=== PATIENT | female | born 1965 | race African-American/Black ===

== ENCOUNTER 2016-12-05 15:47 | Observation (INO) ==
[2016-12-05 19:23] LABS: INR 0.99; PROTIME 10.4 Seconds (9.2-11.7)
[2016-12-05] MEDS ORDERED: NS 1,000 ML IV SCH (20:30)
[2016-12-05] MEDS ORDERED: ZOFRAN IV PRN (20:30)
[2016-12-05] MEDS ORDERED: PROTONIX IV SCH (20:30)
[2016-12-05] MEDS ORDERED: SODIUM CHLORIDE 0.9% INJ SCH (20:45)
[2016-12-05] MEDS: PLAQUENIL PO SCH (21:22)
[2016-12-05] MEDS: ZANAFLEX PO SCH (21:22)
[2016-12-05] MEDS: RANEXA PO SCH (21:22)
[2016-12-05] MEDS: COLACE PO SCH (21:23)
[2016-12-05] MEDS: NEURONTIN PO SCH (21:23)
[2016-12-05] MEDS: AMBIEN PO SCH (21:23)
[2016-12-05] MEDS: LOVENOX SUBQ SCH (21:23)
[2016-12-05] MEDS: GLUCOPHAGE PO SCH (21:23)
--- NOTE | 2016-12-05 21:25 | Diag Imaging Result Doc PS360 ---
EXAM: KUB ABDOMEN INDICATION: constipation TECHNIQUE: Two views COMPARISON: 07/14/2016 FINDINGS: There is a fair amount of stool in the colon suggesting at least moderate constipation. There is no obstructive bowel pattern. There is no evidence of large volume free abdominal gas. There are stable metallic clips projecting over the upper abdomen. There is no evidence of organomegaly. IMPRESSION: Suggestion of constipation. Electronically signed by Jefe Briggs 12/05/2016 9:22 PM
[2016-12-05] MEDS: HUMULIN R SUBQ SCH (21:28)
[2016-12-05] MEDS: TORADOL IM PRN (21:32)
[2016-12-05 21:38] LABS: MANUAL DIFF NEEDED? NO
[2016-12-05 21:39] LABS: HEMATOCRIT 37.1 % (37.0-47.0); HEMOGLOBIN 12.7 g/dL (12.0-16.0); RBC 4.18 XMIL (4.2-5.4)
[2016-12-05 21:40] LABS: BASO% 0.2 % (0.0-0.8); EOS% 2.5 % (0.0-10.0); IMM GRAN# 0.04 X1000 (0.0-0.04); IMM GRAN% 0.5 % (0.0-0.5); LYMPH# 3.99 X1000 (1.2-3.4); LYMPH% 49.3 % (20.5-51.1); MCH 30.4 PG (27-31); MCHC 34.2 g/dL (33-37); MCV 88.8 FL (81-99); MONO# 0.74 X1000 (0.11-0.59); MONO% 9.1 % (1.7-9.3); MPV 10.3 FL (7.4-10.4); NEUT% 38.4 % (42.2-75.2); PLT 320 X1000 (130-400)
[2016-12-05 21:55] LABS: HEMOGLOBIN A1C 6.2 % (4.8-6.0)
[2016-12-05 21:58] LABS: AGAP 14; ALBUMIN 3.7 g/dL (3.5-5.0); ALKALINE PHOSPHATASE 64 U/L (32-104); BUN 22 mg/dL (8-22); CALCIUM 9.2 mg/dL (8.8-10.2); CHLORIDE 109 mmol/L (98-107); COSMO 288; GOT 26 U/L (10-30); GPT 14 U/L (10-36); MAGNESIUM 1.6 mg/dL (1.5-2.7); POTASSIUM 4.4 mmol/L (3.5-5.1); SODIUM 143 mmol/L (136-145); TCO2 20 mmol/L (25-35); TOTAL PROTEIN 7.4 g/dL (6.3-8.3)
[2016-12-05] MEDS ORDERED: MIRALAX PO ONE (22:27)
--- NOTE | 2016-12-05 22:53 | HISTORY AND PHYSICAL ---
CHIEF COMPLAINT: Abdominal pain, nausea, vomiting, not eating for the last 2 days. Blood sugars were running 400. Patient had been on insulin pump. Patient was seen for similar presentation month ago and CT of the abdomen and pelvis was negative. Patient does have gastroparesis. Last BM was reported today. HISTORY OF PRESENT ILLNESS: Basically admitted to the hospital with dehydration with uncontrolled diabetes. She is extremely dry. Unable to get IV access. PICC line was consulted. The patient does have gastric emptying study done on 07/30/2015 which showed delayed gastric emptying. As a result, a hospital admission was warranted. 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 Rheumatoid arthritis, stroke syndrome, left lacunar infarct, history of venous thrombosis left internal jugular vein due to port catheter. PAST SURGICAL HISTORY: Cholecystectomy, hysterectomy, carpal tunnel surgery, bypass surgery, history of right Port-A-Cath. MEDICATIONS: Amlodipine 10 mg daily, losartan 100 daily, clonidine 0.1 daily, Plaquenil 200 p.o. b.i.d., gabapentin 600 p.o. b.i.d., aspirin 325 daily, metformin 1000 p.o. b.i.d., Lipitor 80 daily, Ambien 10 daily, Ranexa 1000 p.o. b.i.d., Zanaflex 4 mg daily, isosorbide 30 mg daily, docusate 100 p.o. b.i.d. ALLERGIES: Not known. SOCIAL HISTORY: 1 kid, lives in [place]. No smoking. No alcohol. FAMILY HISTORY: Father at the age of 50 car wreck. Mom is 87 and of old age with dementia. HEALTH MAINTENANCE: Flu vaccine 2015, tetanus 2012, Pap smear 2011, colonoscopy [address] Parkinson with fecal impaction. REVIEW OF SYSTEMS: HEENT: No headache. No vision problem. No earache. No sore throat. Neck: No goiter. No lymphadenopathy. No bruit. Cardiopulmonary: No chest pain, shortness of breath, PND, orthopnea. GI: Nausea, vomiting, abdominal pain, constipation. : No history of hesitancy, frequency. No swelling of legs. Dry skin. Neurological: No focal symptoms, seizures. PHYSICAL EXAMINATION: VITAL SIGNS: Afebrile, vitals are stable, 5 feet, 196 pounds and labs are pending. HEENT EXAM: Dry mucous membranes. Pupils equal, reactive to light. TMs are normal. Nose and throat within normal limits. NECK: Supple. No lymphadenopathy and no goiter. CHEST: Bilateral air entry. No rales, no wheezing. HEART: Sounds are regular. ABDOMEN: Belly soft, nontender. Good bowel sounds. No masses palpable. EXTREMITIES: No peripheral edema, cyanosis, clubbing. NEUROLOGIC: No focal deficits. INVESTIGATIONS: CBC normal, PT/INR is normal. A1c is doing very well 6.2, proBNP is normal. Cardiac enzymes were normal. Magnesium 1.6. LFTs were normal. Amylase was normal. ASSESSMENT AND PLAN: 1. A 51-year-old female admitted to the hospital basically for gastroparesis, constipation, impending dehydration, nonnarcotic with Toradol and peripherally inserted central catheter line consult. IV fluids, Zofran for nausea and reconcile home medications. 2. Type 2 diabetes on insulin pump. 3. Deep venous thrombosis prophylaxis with Lovenox and will check the lipid profile in the morning. The patient has been admitted to the hospital for observation. cc: Ti Singh MD
[2016-12-06] MEDS: ZOFRAN ODT PO PRN ×5 (03:24→20:52)
[2016-12-06] MEDS: TORADOL IM PRN ×4 (03:24→20:53)
[2016-12-06] MEDS: HUMULIN R SUBQ SCH ×4 (06:20→20:53)
[2016-12-06 07:09] LABS: HDL 29 mg/dL (45-65); LDL 85 mg/dL; TRIGLYCERIDES 308 mg/dL (35-135); VLDL 62 mg/dL
[2016-12-06] MEDS ORDERED: NS 0 ML ONE (07:50)
[2016-12-06] MEDS: PROTONIX PO SCH (07:58)
[2016-12-06] MEDS: ASPIRIN PO SCH (08:51)
[2016-12-06] MEDS: MIRALAX PO SCH (08:51)
[2016-12-06] MEDS: GLUCOPHAGE PO SCH ×2 (08:51→20:52)
[2016-12-06] MEDS: COZAAR PO SCH (08:51)
[2016-12-06] MEDS: RANEXA PO SCH ×2 (08:51→20:53)
[2016-12-06] MEDS: NEURONTIN PO SCH ×2 (08:51→20:52)
[2016-12-06] MEDS: PLAQUENIL PO SCH ×2 (08:51→20:53)
[2016-12-06] MEDS: IMDUR PO SCH (08:51)
[2016-12-06] MEDS: COLACE PO SCH ×2 (08:51→20:53)
[2016-12-06] MEDS: NORVASC PO SCH (08:51)
--- NOTE | 2016-12-06 19:11 | PROGRESS NOTE ---
DATE: 12/06/2016 SUBJECTIVE: The patient is tolerating the diet very well. Belly examination, patient is constipated. PHYSICAL EXAMINATION: Vital Signs: Stable afebrile. HEENT: Within normal limits. Neck: Supple. No lymphadenopathy. No goiter. Chest: Clear. Heart: Sounds are regular. Abdomen: Belly is soft, no signs of peritonitis. LABORATORY WORKUP: CBC: White cell count 8, hematocrit 37, platelets 320,000. SMA7 is normal. A1c 6.2. Triglycerides 308, cholesterol 176, amylase is normal. IMAGING: KUB: Constipation. ASSESSMENT AND PLAN: Abdominal pain probably due to constipation and gastroparesis, eating very well. Discussed the findings. She will be discharged in the morning. We will hold the PICC line. Patient extremely doing very well. Maintenance care for diabetes, hyperlipidemia, at least for the last 6 months comparing with the previous visits. Patient is advised to continue MiraLAX and laxatives as needed. Discharge in the morning. LEVEL OF DOCUMENTATION: 25 minutes. cc: Ti Singh MD
[2016-12-06] MEDS: ZANAFLEX PO SCH (20:52)
[2016-12-06] MEDS: AMBIEN PO SCH (20:53)
[2016-12-06] MEDS: LOVENOX SUBQ SCH (20:53)
[2016-12-06] MEDS ORDERED: DULCOLAX PR SCH (21:00)
[2016-12-06] MEDS ORDERED: LIPITOR PO SCH (21:00)
[2016-12-07] MEDS: ZOFRAN ODT PO PRN ×3 (03:02→11:18)
[2016-12-07] MEDS: TORADOL IM PRN ×3 (03:02→14:46)
[2016-12-07] MEDS: HUMULIN R SUBQ SCH ×2 (06:02→11:19)
[2016-12-07] MEDS: PROTONIX PO SCH (06:21)
[2016-12-07] MEDS: PLAQUENIL PO SCH (09:26)
[2016-12-07] MEDS: MIRALAX PO SCH (09:26)
[2016-12-07] MEDS: RANEXA PO SCH (09:27)
[2016-12-07] MEDS: NEURONTIN PO SCH (09:27)
[2016-12-07] MEDS: GLUCOPHAGE PO SCH (09:27)
[2016-12-07] MEDS: COLACE PO SCH (09:27)
[2016-12-07] MEDS: ASPIRIN PO SCH (09:27)
[2016-12-07] MEDS: COZAAR PO SCH (09:27)
[2016-12-07] MEDS: NORVASC PO SCH (09:27)
[2016-12-07] MEDS: IMDUR PO SCH (09:32)
[2016-12-07 14:22] VITALS: BP 143/76
--- NOTE | 2016-12-07 23:15 | DISCHARGE SUMMARY ---
ADMISSION DATE: 12/05/2016 DISCHARGE DATE: 12/07/2016 DISCHARGING DIAGNOSIS: Intractable abdominal pain, nausea, vomiting due to gastroparesis and constipation. SECONDARY DIAGNOSIS: 1. Coronary artery disease status post bypass surgery. 2. Type 2 diabetes with gastroparesis. 3. Hyperlipidemia. 4. Hypertension. 5. Metabolic syndrome. 6. Migraine headaches. 7. History of pancreatitis, stable. 8. Rheumatoid arthritis under care of Walker Padilla MD. 9. History of left lacunar stroke. No deficits. BRIEF HISTORY: Please see the H and P that was done on 12/05/2016. In brief, she is a 51-year- old female, admitted to the hospital with elevated blood sugars and nausea, vomiting, obstipation. Patient was extremely dry. Patient was seen in the ER a month ago was. CT of the abdomen and pelvis was negative. Patient was admitted to the hospital for impending dehydration and DKA. HOSPITAL COURSE: She was given IV fluids and Toradol for pain. KUB showed constipation. She was given laxatives and Dulcolax and after that, her symptoms were improved. LABORATORIES: CBC: White cell count 8.1, hematocrit 37, platelets 320,000. PT 10, INR 0.9. SMA7, sodium 140, potassium 4.4, chloride 109, BUN 22, creatinine 0.9, glucose 140, A1c 6.2, magnesium 1.6. Cardiac enzymes were normal. ProBNP is normal. Triglycerides 300, cholesterol 176, LDL 85, HDL 29. Amylase was normal. At this time patient is extremely doing very well. In maintenance care for hyperlipidemia and diabetes. DISCHARGE INSTRUCTIONS ARE FOLLOWS: 1. Continue on NovoLog insulin pump at present doses of boluses and basal. 2. Amlodipine 10 daily. 3. Losartan 100 daily. 4. Clonidine 0.1 daily. 5. Plaquenil 200 p.o. b.i.d. 6. Gabapentin 600 b.i.d. 7. Aspirin 325 daily. 8. Metformin 1000 p.o. b.i.d. 9. Lipitor 80 daily. 10. Ambien 10 mg daily. 11. Ranexa 1000 p.o. b.i.d. 12. Zanaflex 4 daily. 13. Isosorbide 30 daily. 14. Colace 100 p.o. b.i.d. 15. MiraLAX as needed. 16. Follow up in my office every 4 months for maintenance care for A1c as well as next week. cc: Ti Singh MD
== END 2016-12-07 15:20 | disposition home or self-care (01) ==
LOC: INTOOBSV 15:47 → DIRADM 15:47 → 3N 16:08
PROVIDERS: ADMIT Internal Medicine; ATTEND Internal Medicine

== ENCOUNTER 2018-12-04 15:05 | Inpatient (IN) ==
[2018-12-04] MEDS ORDERED: LEVEMIR SUBQ SCH (21:00)
[2018-12-04] MEDS: LOVENOX SUBQ SCH (22:13)
[2018-12-04] MEDS: BRILINTA PO SCH (22:13)
[2018-12-04] MEDS: PLAQUENIL PO SCH (22:13)
[2018-12-04] MEDS: GLUCOPHAGE PO SCH (22:14)
[2018-12-04] MEDS: NEURONTIN PO SCH (22:14)
[2018-12-04] MEDS: RANEXA PO SCH (22:14)
[2018-12-04] MEDS ORDERED: INSULIN PEN NEEDLES ONE (22:15)
[2018-12-04] MEDS: HUMALOG SUBQ SCH (22:38)
[2018-12-04] MEDS: ZANAFLEX PO PRN (22:56)
[2018-12-04] MEDS: AMBIEN PO PRN (22:57)
--- NOTE | 2018-12-04 23:28 | HISTORY AND PHYSICAL ---
CHIEF COMPLAINT: Dizziness, low blood pressure, weakness, uncontrolled diabetes. HISTORY OF PRESENT ILLNESS: She is a 53-year-old female who came to my office last week with the above symptoms. Laboratory data was done at [facility]. Blood sugar was running 400. Blood pressure was 70 x 40 despite stop taking Cozaar. She was extremely dizzy. She was admitted to the hospital for IV fluids and uncontrolled diabetes. She also has a history of gastroparesis. PAST MEDICAL HISTORY: 1. Type 2 diabetes insulin dependent. 2. Hyperlipidemia. 3. Hypertension. 4. 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 5. Migraine headaches. 6. History of pancreatitis due to hyperlipidemia. 7. Rheumatoid arthritis. 8. History of enterococcal infection of the sternum from the Port-A-Cath, poor IV axis. 9. CAD with a stent in the circumflex. PAST SURGICAL HISTORY: 1. Cholecystectomy. 2. Hysterectomy. 3. Coronary artery bypass surgery. 4. Bilateral carpal tunnel surgery. 5. Debridement of sternal wound. 6. Removal of Port-A-Cath x2. ALLERGIES: Not known. SOCIAL HISTORY: with 1 child. Retired. Lives in [place] with . No smoking. No alcohol. FAMILY HISTORY: Father of an accident at the age of 50. Mom of old age from dementia. MEDICATIONS: As follows: Plaquenil 200 p.o. b.i.d., gabapentin 600 b.i.d., metformin 1000 p.o. b.i.d., Lipitor 80 mg daily, Ranexa a 1000 p.o. b.i.d., Zanaflex 4 mg at bedtime, isosorbide 30 mg daily, Ambien 10 at bedtime, aspirin 81 mg daily, Brilinta 90 mg p.o. b.i.d., metoprolol 50 daily, Levemir 30 units subcutaneous b.i.d., Reglan 10 mg daily, which was discontinued. ALLERGIES: Reglan due to tardive dyskinesias. HEALTH MAINTENANCE: Flu vaccine in April of 2018. Mammography [place] [address] Nuno. Colonoscopy [place] [address] Porter. REVIEW OF SYSTEMS: HEENT: Dizziness. No headache. No vision problem. No earache. No sore throat. Neck: No goiter. No lymphadenopathy. No bruit. Cardiopulmonary: No chest pain, shortness of breath, PND, orthopnea. Gastrointestinal: No nausea or dizziness. No altered bowel habits. No bleeding per rectum. Genitourinary: No history of hesitancy, frequency, polyuria. No dysuria. Extremities: No swelling of legs. No joint pain. Neurologic: No focal symptoms or weakness. PHYSICAL EXAMINATION: VITAL SIGNS: Blood pressure in my office 70 x 60 upon standing, afebrile, pulse is 84, very dry. HEENT: Atraumatic and normocephalic. NECK: Supple. No lymphadenopathy. CHEST: Bilateral air entry. HEART: Sounds are regular. No murmur. ABDOMEN: Belly is soft, obese, nontender. Good bowel sounds. No masses palpable. EXTREMITIES: No peripheral edema or cyanosis. NEUROLOGIC: No obvious neurological deficits. LABORATORY INVESTIGATIONS: This was done last week. CBC: White cell count 10, hematocrit 35, platelets 363,000. SMA 12: Blood sugar 432, creatinine 1.3. LFTs were normal. Free T4 is normal. Lipid profile: Cholesterol 148, triglycerides 203, HDL 42, LDL 64. TSH is normal. Uric acid 7.2. Urine dipstick glycosuria positive. B12 472. Vitamin D is 6.9. ASSESSMENT AND PLAN: 1. The patient is a 52-year-old female admitted to the hospital with uncontrolled diabetes with hypotension with underlying comorbid condition. Plan is intravenous fluids for intravenous axis. Consider PICC line . 2. Nausea. Zofran. 3. Diabetic gastroparesis. Discontinue Reglan due to tardive dyskinesia. 4. The patient has history of high blood pressure currently on hold on losartan, Norvasc and metoprolol. 5. Rheumatoid arthritis on Plaquenil [address] Pelletier. 6. Type 2 diabetes, currently on metformin and Levemir. 7. Neuropathy pain on Neurontin 600 t.i.d. 8. Hyperlipidemia on Lipitor and Niaspan. 9. Coronary artery disease status post bypass with stent on aspirin, Brilinta, and metoprolol. 10. Acid reflux disease on Prilosec. 11. Vitamin D deficiency on replacement therapy. 12. Reconcile home medications, orthostatic blood pressure and we will follow up. cc: Ti Singh MD
[2018-12-05] MEDS: NS 1,000 ML IV SCH ×3 (05:39→22:18)
[2018-12-05 06:37] LABS: HEMOGLOBIN A1C 10.3 % (4.8-6.0)
[2018-12-05] MEDS: HUMALOG SUBQ SCH ×4 (06:45→22:16)
[2018-12-05 06:53] LABS: CALCIUM 8.1 mg/dL (8.8-10.2); CREATININE 1.5 mg/dL (0.5-0.9); POTASSIUM 3.7 mmol/L (3.5-5.1)
[2018-12-05] MEDS ORDERED: REGLAN PO SCH (09:00)
[2018-12-05] MEDS: IMDUR PO SCH (10:24)
[2018-12-05] MEDS: RANEXA PO SCH ×2 (10:24→22:14)
[2018-12-05] MEDS: BRILINTA PO SCH ×2 (10:24→22:15)
[2018-12-05] MEDS: NEURONTIN PO SCH ×2 (10:24→22:15)
[2018-12-05] MEDS: TOPROL XL PO SCH (10:25)
[2018-12-05] MEDS: LIPITOR PO SCH (10:25)
[2018-12-05] MEDS: ASPIRIN EC PO SCH (10:26)
[2018-12-05] MEDS: PLAQUENIL PO SCH ×2 (10:26→22:15)
[2018-12-05] MEDS: GLUCOPHAGE PO SCH ×2 (10:26→22:15)
[2018-12-05] MEDS: VITAMIN D PO SCH (10:27)
[2018-12-05] MEDS: LEVEMIR SUBQ SCH ×2 (10:46→22:16)
[2018-12-05] MEDS ORDERED: ZOFRAN PO PRN (18:25)
[2018-12-05] MEDS: LOVENOX SUBQ SCH (22:17)
[2018-12-05] MEDS: AMBIEN PO PRN (22:39)
--- NOTE | 2018-12-06 01:55 | PROGRESS NOTE ---
DATE: 12/05/2018 SUBJECTIVE: Blood pressure is dropping, 80. Patient is dizzy. Not able to get an IV axis and waiting for PICC line. OBJECTIVE: General: On examination, she is orthostatic despite stopping the Cozaar and Norvasc. HEENT: Dry. Neck: Supple. Chest: Clear. Heart: Sounds are regular. Abdomen: Belly is soft, nontender. No obvious deficits noted. ASSESSMENT AND PLAN: 1. Dehydration despite stopped taking losartan, Norvasc. Plan is IV fluids. 2. Waiting for peripherally inserted central catheter. 3. Uncontrolled diabetes. Explained about Freestyle Aj prescription. Continue on sliding scale with insulin coverage and hypoglycemia this morning. I decreased the insulin Levemir 20 units subcutaneous b.i.d. Checked the A1c and it came back 10.3. I am going to adjust the diabetes medicine along with orthostatic hypotension and creatinine is slowly increasing and waiting for PICC line and followup LEVEL OF DOCUMENTATION: 25 minutes. cc: Ti Singh MD MTDD
[2018-12-06] MEDS: ZANAFLEX PO PRN ×2 (06:36→22:58)
[2018-12-06] MEDS: HUMALOG SUBQ SCH ×4 (07:02→23:00)
[2018-12-06] MEDS ORDERED: NS 250 ML ONE (08:41)
[2018-12-06 08:48] LABS: INR 0.86; PROTIME 12.5 Seconds (11.0-16.0)
[2018-12-06] MEDS: NS 1,000 ML IV SCH ×2 (09:26→23:04)
[2018-12-06] MEDS: IMDUR PO SCH (09:27)
[2018-12-06] MEDS: LIPITOR PO SCH (09:27)
[2018-12-06] MEDS: PLAQUENIL PO SCH ×2 (09:27→20:52)
[2018-12-06] MEDS: RANEXA PO SCH ×2 (09:28→20:51)
[2018-12-06] MEDS: VITAMIN D PO SCH (09:28)
[2018-12-06] MEDS: GLUCOPHAGE PO SCH ×2 (09:28→20:51)
[2018-12-06] MEDS: TOPROL XL PO SCH (09:28)
[2018-12-06] MEDS: BRILINTA PO SCH ×2 (09:28→22:58)
[2018-12-06] MEDS: ASPIRIN EC PO SCH (09:28)
[2018-12-06] MEDS: NEURONTIN PO SCH ×2 (09:28→20:50)
[2018-12-06] MEDS: LEVEMIR SUBQ SCH ×2 (09:30→20:52)
[2018-12-06] MEDS: ZOFRAN IV PRN ×3 (09:38→19:31)
[2018-12-06] MEDS ORDERED: INSULIN PEN NEEDLES ONE (16:04)
[2018-12-06] MEDS ORDERED: ULTRACET 37.5MG/325MG PO PRN (17:52)
--- NOTE | 2018-12-06 20:16 | PROGRESS NOTE ---
DATE: 12/06/2018 SUBJECTIVE: The patient has poor IV access. Waiting for the PICC line to be placed. The patient's blood pressure was dropping, despite stopping Norvasc and Cozaar. Creatinine is going up. Blood sugar also running erratic. PHYSICAL EXAMINATION: Vital Signs: Temperature is 98 degrees, blood pressure is 70/51 upon standing. HEENT: Within normal limits. Neck: Supple. No lymphadenopathy. Chest: Clear. Heart: Sounds are regular. Belly is soft, nontender. ASSESSMENT AND PLAN: 1. Orthostatic hypotension despite stopped taking Cozaar and Norvasc. Rule out adrenal insufficiency. Unable to get IV. 2. Waiting for IV access. 3. Intravenous fluids. 4. Uncontrolled diabetes, low blood sugar, also consider using Tresiba and Freesyle Aj 5. Rest of the medical problems are stable. Waiting to be get a PICC line placed and will follow up. LEVEL OF DOCUMENTATION: 25 minutes. cc: Ti Singh MD MTDD
[2018-12-06] MEDS: LOVENOX SUBQ SCH (20:51)
[2018-12-06] MEDS: AMBIEN PO PRN (22:58)
[2018-12-07] MEDS: ZOFRAN IV PRN ×4 (02:25→20:54)
[2018-12-07] MEDS ORDERED: CORTROSYN IV ONE (06:00)
[2018-12-07] MEDS: HUMALOG SUBQ SCH ×4 (06:58→20:54)
[2018-12-07 07:34] LABS: INR 0.87; PROTIME 12.6 Seconds (11.0-16.0)
[2018-12-07] MEDS: GLUCOPHAGE PO SCH ×2 (08:39→20:47)
[2018-12-07] MEDS: RANEXA PO SCH ×2 (08:40→20:47)
[2018-12-07] MEDS: BRILINTA PO SCH ×2 (08:40→20:47)
[2018-12-07] MEDS: PLAQUENIL PO SCH ×2 (08:40→20:46)
[2018-12-07] MEDS: ASPIRIN EC PO SCH (08:41)
[2018-12-07] MEDS: TOPROL XL PO SCH (08:41)
[2018-12-07] MEDS: IMDUR PO SCH (08:41)
[2018-12-07] MEDS: LIPITOR PO SCH (08:41)
[2018-12-07] MEDS: VITAMIN D PO SCH (08:43)
[2018-12-07] MEDS: LEVEMIR SUBQ SCH ×2 (09:25→20:47)
[2018-12-07] MEDS: NEURONTIN PO SCH ×2 (09:26→20:47)
[2018-12-07] MEDS: NS 1,000 ML IV SCH (17:57)
--- NOTE | 2018-12-07 21:05 | PROGRESS NOTE ---
DATE: 12/07/2018 SUBJECTIVE: The patient did have PICC line on the right side. Small oozing noted. Orthostatic blood pressures were obtained, look stable, after IV fluids. No complaints. Blood sugar is looking better. ASSESSMENT AND PLAN: 1. On exam, orthostatic hypotension. Ordered cortisone stimulation test. 2. Continue intravenous fluids. 3. Poor intravenous access. Peripherally inserted central catheter line. 4. Deep venous thrombosis prophylaxis with Lovenox. 5. Type 2 diabetes. Consider using Tresiba with FreeStyle Aj. 6. Some excessive bleeding, probably from the Lovenox. It will be discontinued. The patient has been on Brilinta and Plavix. 7. Hypotension. Discontinue Norvasc and Cozaar, and continue on metoprolol. Follow up on the pending labs. cc: Ti Singh MD
[2018-12-07] MEDS: ZANAFLEX PO PRN (23:16)
[2018-12-07] MEDS: AMBIEN PO PRN (23:16)
[2018-12-08] MEDS: LEVEMIR SUBQ SCH (09:40)
[2018-12-08] MEDS: NEURONTIN PO SCH (09:40)
[2018-12-08] MEDS: GLUCOPHAGE PO SCH (09:45)
[2018-12-08] MEDS: BRILINTA PO SCH (09:45)
[2018-12-08] MEDS: LIPITOR PO SCH (09:50)
[2018-12-08] MEDS: ASPIRIN EC PO SCH (09:50)
[2018-12-08] MEDS: PLAQUENIL PO SCH (09:50)
[2018-12-08] MEDS: TOPROL XL PO SCH (09:50)
[2018-12-08] MEDS: IMDUR PO SCH (10:06)
[2018-12-08] MEDS: RANEXA PO SCH (10:07)
[2018-12-08] MEDS: ZOFRAN IV PRN (10:09)
[2018-12-08] MEDS: VITAMIN D PO SCH (10:15)
[2018-12-08 11:27] VITALS: BP 146/89
[2018-12-08] MEDS: HUMALOG SUBQ SCH (11:38)
--- NOTE | 2018-12-08 20:40 | DISCHARGE SUMMARY ---
ADMISSION DATE: 12/04/2018 DISCHARGE DATE: 12/08/2018 DISCHARGING DIAGNOSIS: 1. Dizziness due to hypotension due to uncontrolled diabetes and possible dysautonomia. 2. Uncontrolled diabetes. 3. Hyperlipidemia. 4. Hypertension. 5. Rheumatoid arthritis. 6. Coronary artery disease with stents in the circumflex, status post bypass surgery. PROCEDURE: PICC line on the right side. BRIEF HISTORY: Please see the H and P that was done 12/04/2018. In brief, she is a 53-year-old female who came in my office. Blood pressure 70/60. Dizziness upon standing. Extremely orthostatic. Blood sugars are 450. Hemoglobin A1c 10.1. Patient has initially IV access that is problematic. PICC line was placed. Saline was given. I tried to get a FreeStyle Aj sensors and changing the insulin Levemir to Tresiba. Followup hydration blood pressure is stable. The patient was advised to continue to hold on amlodipine and losartan at this time. At the time of discharge, blood sugars running 166. LABS: CBC: White cell count 10, hematocrit 34, platelets 304,000. Sodium 135, potassium 3.7, creatinine 1.5. A1c 10.3. Sugar is 400. Previous. C-peptide is 1.7. Uric acid is 7.3. At the time of discharge, the patient is stable. DISCHARGE INSTRUCTIONS: 1. Strict ADA diet. 2. FreeStyle Aj sensors on the reader. 3. Plaquenil 200 p.o. b.i.d. Neurontin 600 b.i.d. Metformin 1000 p.o. b.i.d. Lipitor 80 daily. Ranexa 1000 p.o. b.i.d. Tizanidine 4 mg at bedtime. Isosorbide 30 mg daily. Ambien 10 as needed. Aspirin 81 mg daily. Brilinta 90 p.o. b.i.d. Metoprolol 50 daily. The patient was on Levemir 30 units subcutaneous b.i.d. and is changing it to Tresiba into 50 units every day in the morning. Discontinue Reglan. 4. Follow up in my office in 10 days. 5. I will give the coupon for the Tresiba and Freestyle Aj. cc: MD ANALILIA Chong
== END 2018-12-08 13:27 | disposition home or self-care (01) | DRG 638 ==
LOC: DIRADM 15:05 → 4N 17:21
PROVIDERS: ADMIT Internal Medicine; ATTEND Internal Medicine
CPT/HCPCS: 36569; 80048; 82948; 83036; 85049; 85610; A9270; J0834; J1650; J1815; J2405; J7030; J7050; XXXXX

== ENCOUNTER 2019-04-20 23:52 | Inpatient (IN) ==
[2019-04-20] MEDS ORDERED: ASPIRIN PO ONE (23:54)
--- NOTE | 2019-04-21 00:05 | EKG Report ---
Test Performed on : 04/20/2019 11:57:12 PM Test Reason : cp Blood Pressure : / mmHG Vent. Rate : 093 BPM Atrial Rate : 093 BPM P-R Int : 148 ms QRS Dur : 082 ms QT Int : 374 ms P-R-T Axes : 029 -01 082 degrees QTc Int : 465 ms Sinus rhythm. with premature atrial complexes. T wave abnormality, consider lateral ischemia Abnormal ECG When compared with ECG of 10-OCT-2017 21:34, premature atrial complexes. are now present QRS duration has decreased Borderline criteria for Lateral infarct are no longer present Unconfirmed Result
--- NOTE | 2019-04-21 00:29 | PROVIDER DOCUMENTATION ---
HPI-General Adult - General Chief Complaint: Chest Pain Stated Complaint: CHEST PAIN, NAUSEA Time Seen by Provider: 04/21/19 00:07 Source: patient Allergies/Adverse Reactions: Patient Allergies Allergy/AdvReac Type Severity Reaction Status Date / Time No Known Allergies Allergy Verified 12/04/18 17:33 Home Medications: Home Medication List Medication Instructions Recorded Confirmed Last Taken Type Atorvastatin Calcium [Lipitor] 80 mg PO DAILY 01/28/16 04/21/19 12/03/18 History Gabapentin 600 mg PO BID 01/28/16 04/21/19 06/11/17 History Hydroxychloroquine [Plaquenil] 200 mg PO BID 01/28/16 04/21/19 12/04/18 History Metformin [Glucophage] 1,000 mg PO BID 01/28/16 04/21/19 12/04/18 History Isosorbide Mononitrate E.r. [Imdur] 30 mg PO DAILY 12/05/16 04/21/19 12/04/18 History Ranolazine [Ranexa] 1,000 mg PO BID 12/05/16 04/21/19 12/04/18 History Tizanidine [Zanaflex] 4 mg PO HS PRN PRN 12/05/16 04/21/19 1 Day Ago History ~06/10/17 Zolpidem [Ambien] 10 mg PO HS PRN PRN 08/23/17 04/21/19 Unknown History Aspirin [Aspir-Low] 81 mg PO DAILY 10/13/17 04/21/19 12/04/18 History Metoprolol Succinate E.r. [Toprol 50 mg PO DAILY 10/13/17 04/21/19 12/04/18 History Xl] Insulin Degludec [Tresiba 50 unit SQ WBREAKFAST #4 insuln.pen 12/08/18 04/21/19 Unknown Rx Flextouch U-200] - History of Present Illness -Gen Adult Nature of Presenting Problems: This is a 54yo female who presents with CC of chest pain. The patient reports the onset of the chest pain was this morning and it has been intermitent throughout the day. It is described as a pressure that is non-radiating and is worse with exertion, and improved with nitro. The patient does report that it is similar to her previous chest pain when she had heart issues. Location of Pain/Injury: reports: chest, abdomen Pain Radiation: reports: no radiation Quality of Pain: reports: pressure (heaviness) Onset/Duration: reports: this morning Timing: reports: still present, improving, intermittent Modifying Factors: improves with: other (worse with light activity) Associated Symptoms: reports: nausea. denies: diaphoresis Review of Systems - Adult - REVIEW OF SYSTEMS - ADULT Constitutional: reports: no symptoms reported. denies: fever Eyes: reports: no symptoms reported Ears, Nose, Mouth & Throat: reports: no symptoms reported. denies: throat pain Cardiovascular: reports: no symptoms reported. denies: chest pain Respiratory: reports: shortness of breath Gastrointestinal: reports: abdominal pain (left) Genitourinary: reports: no symptoms reported Musculoskeletal: reports: no symptoms reported. denies: back pain Integumentary: reports: no symptoms reported Neurological: reports: headache/migraines Psychiatric: reports: no symptoms reported Endocrine: reports: no symptoms reported Hematologic/Lymphatic: reports: no symptoms reported, other (no bleeding) Allergic/Immunologic: reports: no symptoms reported, other (no swelling) Past History - Adult - PAST MEDICAL HISTORY-ADULT Review of Records: reports: Old Records Reviewed, Nursing Assessment Review, Medications Reviewed, Social history reviewed & non-contributory. Major Childhood Illnesses: reports: denies history Cardiovascular: reports: blood clots (DVT), CAD, HTN, hyperlipidemia Respiratory: reports: sleep apnea Gastrointestinal: reports: denies history Obstetrical/Gynecological: reports: denies history Genitourinary: reports: denies history Musculoskeletal: reports: arthritis Neurological: reports: denies history Endocrine/Immune: reports: Diabetes Other Conditions: reports: denies history - PRIOR SURGERIES/PROCEDURES Surgical/Procedure History: reports: CABG, cholecystectomy, hysterectomy, other (splenectomy) - PRIOR HOSPITALIZATIONS Prior Hospitalizations: reports: for other non-related, other (none recent) - IMMUNIZATION STATUS Childhood Immunizations: See Nurse Assessment Flu Vaccine: See Nurse Assessment - FAMILY HISTORY Family History: reviewed, not pertinent Physical Exam-General - CONSTITUTIONAL General Appearance: appears well, alert, no apparent distress - EYES Eyes: negative: conjuctival exudate - HEAD, EARS, NOSE, MOUTH & THROAT HENMT: normocephalic/atraumatic, moist mucous membranes - RESPIRATORY Respiratory: lungs clear, decreased breath sounds (bases bilaterally). negative: crackles, wheezing - CARDIOVASCULAR Cardiovascular: regular rate, rhythm, no edema - GASTROINTESTINAL (ABDOMEN) Abdominal Exam: non tender, soft - MUSCULOSKELETAL Back Exam: normal inspection - SKIN Integumentary: normal color, warm/dry - NEUROLOGIC Neurologic: other (abnormal facial movments (chronic post previous CVA)) - PSYCHIATRIC Psych/Mental Status: normal mood/affect, normal thought content, normal thought process Progress - PLAN OF CARE/RESULTS Progress/Plan/Lab Results: Vital Signs - 8 hr 04/20/19 23:58 Temperature 98.5 F Pulse Rate 92 H Respiratory Rate 16 Blood Pressure 177/100 O2 Sat by Pulse Oximetry 98 Orders Category Date Time Status Cardiac Monitoring DIRECTED Care 04/20/19 23:54 Active Oxygen Therapy- ED Nursing DIRECTED Care 04/20/19 23:54 Active Saline Loc NOW Care 04/20/19 23:54 Active CHEST-PORTABLE [RAD] Stat Exams 04/21/19 00:19 Ordered CBC WITH ELECTRONIC DIFF [HEME] Stat Lab 04/20/19 23:54 Uncollected CK PROFILE [SP CHEM] Stat Lab 04/20/19 23:54 Uncollected COMPREHENSIVE METABOLIC PANEL [CHEM] Stat Lab 04/20/19 23:54 Uncollected PRO B-NATRIURETIC PEPTIDE Stat Lab 04/20/19 23:54 Uncollected PROTIME WITH INR [COAG] Stat Lab 04/20/19 23:54 Uncollected PTT [COAG] Stat Lab 04/20/19 23:54 Uncollected TROPONIN T Stat Lab 04/20/19 23:54 Uncollected Aspirin Med 04/20/19 23:54 Discontinued 325 mg PO NOW ONE CP/SOB/Palp >45 yrs of Age Stat Oth 04/20/19 23:54 Ordered EKG [EKG] Stat Ther 04/20/19 23:54 Draft Result Diagrams: 04/21/19 03:35 04/21/19 03:35 - CHANGE OF SHIFT REPORT (ED Provider) 1 Report Given and Care Transferred to:: Dr. Galaviz Time of Transfer: 03:38 Items Pending: Labs Procedures - ADDITIONAL PROCEDURES Additional Procedure: Arterial Cannulation/Blood Draw Anesthetic: 1%, Lidocaine/Xylocaine Volume of Anesthetic (ml's): 3 Description of Procedure (Other): Ultrasound guided femoral blood draw. - Procedure explained to patient who agreed - vascular structures identified using U/S - area numbed using 1% Lidocaine - using 18 gauge needle 10mls of blood was withdrawn from the femoral vein for analysis - the needle was withdrawn and pressure was applied to the site - the patient tolerated the procedure well without complication Departure - Departure Date of Disposition Decision: 04/21/19 Time of Disposition Decision: 04:59 DIAGNOSIS: Chest pain Qualifiers: Chest pain type: other chest pain Qualified Code(s): R07.89 - Other chest pain; R07.8 - Other chest pain Disposition: ADMITTED INPATIENT 09 Certified Medical Emergency: Emergent Condition: Stable Referrals and Follow-Ups: Donell Singh MD [Primary Care Provider] - Work Excuses: Return to School/Parent Work - Critical Care Note This patient required my direct & personal management of CC.: No Attestation - Physician/ DEAN Attestation Patient care was provided by Advanced Practice Provider:: No The physician spent face to face time with patient:: Yes Advanced Practice Provider documentation review:: Supervising physician onsite and consulted in the evaluation and care of this patient. The physician did have a face to face encounter with the patient.
[2019-04-21] MEDS ORDERED: CATAPRES PO ONE (02:53)
[2019-04-21] MEDS ORDERED: CATAPRES ONE ×2 (03:02)
[2019-04-21] MEDS ORDERED: XYLOCAINE-MPF 1% INJ ONE (03:17)
[2019-04-21] MEDS ORDERED: ZOFRAN PO ONE ×2 (03:42→13:24)
[2019-04-21 04:12] LABS: BASO# 0.03 X1000 (0.0-0.2); BASO% 0.2 % (0.0-0.8); EOS# 0.32 X1000 (0.0-0.7); EOS% 2.6 % (0.0-10.0); HEMATOCRIT 30.7 % (37.0-47.0); HEMOGLOBIN 10.3 g/dL (12.0-16.0); IMM GRAN# 0.11 X1000 (0.0-0.04); IMM GRAN% 0.9 % (0.0-0.5); LYMPH# 5.74 X1000 (1.2-3.4); LYMPH% 46.7 % (20.5-51.1); MCH 30.7 PG (27-31); MCHC 33.6 g/dL (33-37); MCV 91.6 FL (81-99); MONO% 6.5 % (1.7-9.3); MPV 10.7 FL (7.4-10.4); NEUT# 5.28 X1000 (1.4-6.5); NEUT% 43.1 % (42.2-75.2); PLT 365 X1000 (130-400); RBC 3.35 XMIL (4.2-5.4); RDW 13.3 % (11.5-14.5); WBC 12.28 X1000 (4.8-10.8)
[2019-04-21 04:19] LABS: INR 0.82; PROTIME 11.4 Seconds (11.0-16.0)
[2019-04-21 04:30] LABS: AGAP 12; ALB/GLOB RATIO 1.3; ALBUMIN 3.8 g/dL (3.5-5.0); ALKALINE PHOSPHATASE 50 U/L (32-104); BUN 22 mg/dL (8-22); CALCIUM 9.2 mg/dL (8.8-10.2); CHLORIDE 112 mmol/L (98-107); CK PROFILE 81 U/L (24-173); COSMO 296; CREATININE 1.1 mg/dL (0.5-0.9); ESTIMATED GFR > 60; GLUCOSE 175 mg/dL (70-104); GOT 18 U/L (10-30); GPT 8 U/L (10-36); POTASSIUM 4.9 mmol/L (3.5-5.1); SODIUM 145 mmol/L (136-145); TCO2 21 mmol/L (25-35); TOTAL BILIRUBIN < 0.15 mg/dL (0.20-1.00); TOTAL PROTEIN 6.7 g/dL (6.3-8.3)
[2019-04-21] MEDS ORDERED: NITROGLYCERIN TOP ONE ×2 (05:35→06:21)
[2019-04-21] MEDS ORDERED: TYLENOL PO ONE (05:35)
--- NOTE | 2019-04-21 06:26 | Diag Imaging Result Doc PS360 ---
CHEST-PORTABLE - 04/21/2019 INDICATION: cp COMPARISON: 10/10/2017 FINDINGS: Stable sternotomy wires. Stable calcified granulomas in the mediastinum. Critically low low lung volumes. No infiltrates or edema. Heart size is normal. IMPRESSION: Critically low lung volumes but no obvious acute disease. Electronically signed by Deondre Ray 04/21/2019 6:24 AM
[2019-04-21] MEDS: HUMULIN R SUBQ SCH ×4 (07:00→21:59)
[2019-04-21] MEDS ORDERED: ASPIRIN EC PO SCH (09:00)
[2019-04-21] MEDS ORDERED: IMDUR PO SCH (09:00)
[2019-04-21] MEDS ORDERED: TOPROL XL PO SCH (09:00)
--- NOTE | 2019-04-21 09:23 | EKG Report ---
Test Performed on : 04/21/2019 09:17:13 AM Test Reason : chest pain Blood Pressure : / mmHG Vent. Rate : 076 BPM Atrial Rate : 076 BPM P-R Int : 166 ms QRS Dur : 082 ms QT Int : 422 ms P-R-T Axes : 030 -03 071 degrees QTc Int : 474 ms Normal sinus rhythm. Possible Anterior infarct , age undetermined Abnormal ECG Confirmed by Myrna ALBRECHT, Zhao Alcantar ([id number]) on 04/22/2019 7:40:47 AM
--- NOTE | 2019-04-21 09:32 | HISTORY AND PHYSICAL ---
PRIMARY CARE PROVIDER: Dr. Singh. RECORDS MANAGEMENT MANAGER: Dr. Ramos. CHIEF COMPLAINT: Chest pain. HISTORY OF PRESENT ILLNESS: Ms. Snyder is a 54-year-old female with a past medical history most notable for coronary artery disease status post CABG and stent placement, hypertension, hyperlipidemia, CVA and diabetes mellitus. The patient states since yesterday morning she has been having chest pain. She reports it was in her left chest. The patient reports a stabbing type pain that radiated into her left upper abdomen and left flank. She reports some associated symptoms of shortness of breath. The patient states that she did take sublingual nitroglycerin twice yesterday, and when she took this this did relieve her chest pain. She did report a headache and nausea after taking the nitroglycerin. The patient states that her chest pain did come back for a third time. She did present to the ER for further evaluation. She denies any recent changes in her medications. She also denies missing any doses of her blood pressure medicines. The patient is still currently reporting a headache at this time. She denies any dizziness. She is still reporting chest pain. She has had some shortness of breath, but her chest pain does not have any at present. She is having radiation of her chest pain in her left upper abdomen and flank. Other than this, she denies any other abdominal pain. She reports some nausea though denies any vomiting or diarrhea. She denies any hematochezia or melena. She denies any dysuria. She denies any pain, numbness, tingling or swelling in extremities. She also denies any orthopnea or proximal nocturnal dyspnea. She denies any cough, fever, body aches, or chills. Upon arrival to the ER, patient's EKG did show sinus rhythm with premature atrial complexes at a rate of 93. Her cardiac enzymes have been negative. She does have a slightly elevated proBNP of 1243. Patient's white blood cell count was 12,280. She has been afebrile. Upon the initial arrival to the ER, her blood pressure was quite elevated. She did have systolics in the 200s and diastolics that were as high as 1 teens to 130s. Chest x-ray showed critically low lung volumes, but no obvious acute disease. In the ER, they did make multiple attempts to obtain IV access though they were unable to do so. The patient will likely need IV access such as a PICC line. She will be admitted inpatient with further treatment evaluation of her hypertensive urgency and chest pain. REVIEW OF SYSTEMS: A 14 point review of systems was conducted with the patient and all were negative except for pertinent positives mentioned above in HPI. PAST MEDICAL HISTORY: 1. Coronary artery disease status post coronary artery bypass graft and cardiac stent. 2. Diabetes mellitus type 2. 3. Hyperlipidemia. 4. Hypertension. 5. History of Galarza's palsy. 6. Migraine headaches. 7. History of pancreatitis due to hyperlipidemia. 8. Rheumatoid arthritis. 9. History of enterococcal infection of the sternum from a Port-A-Cath in the past. 10. History of stroke which affected her right side. She does still have some residual speech problems at times as well as some right-sided weakness in her right hand and foot though she states that this is worse in her hand. PAST SURGICAL HISTORY: 1. Cholecystectomy. 2. Hysterectomy. 3. Coronary artery bypass graft. 4. Cardiac stent placement. 5. Bilateral carpal tunnel surgery. 6. Debridement of sternal wound. 7. Removal of Port-A-Cath x2. 8. 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 9. Colon resection secondary to infection as well. SOCIAL HISTORY: The patient denies any tobacco, alcohol or illicit drug use. Her was present at bedside during our examination. FAMILY HISTORY: Positive for her mother having history of Alzheimer's and hypertension. Her father she reports that she does not know any of his medical history. ALLERGIES: Patient reports no known allergies. HOME MEDICATIONS: 1. Aspirin 81 mg p.o. daily. 2. Lipitor 80 mg p.o. daily. 3. Gabapentin 600 mg p.o. b.i.d. 4. Plaquenil 200 mg p.o. b.i.d. 5. Tresiba Flex Touch - 200 units subcu with breakfast. 6. Imdur 30 mg p.o. daily. 7. Glucophage 1000 mg p.o. b.i.d. 8. Toprol-XL 50 mg p.o. daily. 9. Ranexa 1000 mg p.o. daily. 10. Brilinta 90 mg p.o. b.i.d. 11. Tizanidine 4 mg p.o. at bedtime p.r.n. 12. Ambien 10 mg p.o. at bedtime p.r.n. DIAGNOSTIC DATA/LABORATORY RESULTS: [place] [address], hemoglobin 10.3, hematocrit 30.7, and platelet count is 365,000. PT is 11.4, INR 0.82, and PTT is 25. Sodium 145, potassium 4.9, chloride 112, serum bicarb 21, BUN 22, creatinine 1.1. Glucose 175, calcium 9.2, magnesium 1.5. Liver function tests were within normal limits. CK 81. Troponin less than 0.01 and proBNP is 1243. 1. EKG showed sinus rhythm with premature atrial complexes at a rate of 93 with a QTc of 465. 2. Chest x-ray showed a critically low lung volumes, though no obvious acute abnormalities. There were no infiltrates or edema noted. PHYSICAL EXAMINATION: VITAL SIGNS: Temperature 97.9 degrees, heart rate 76, respirations 16, blood pressure is 146/102, and oxygen saturation is 96% on room air. GENERAL: Ms. Snyder is a pleasant 54-year-old female. She is resting on the ER stretcher. She was in no acute distress. She was awake, alert, and able to answer questions appropriately. HEENT: Head is atraumatic and normocephalic. Pupils are equal, round, and reactive to light, and were 3 mm bilaterally and brisk. Oral mucosa is moist. Oropharynx is clear. NECK: Supple. Trachea midline. No JVD noted. CARDIOVASCULAR: Patient has S1-S2 present. No murmurs, gallops, rubs appreciated with a regular rate and rhythm. PULMONARY: Patient has symmetrical chest expansion bilaterally. Lung sounds are clear to auscultation in bilateral full darby. ABDOMEN: Soft and nondistended. She reports some slight tenderness upon palpation of the left upper quadrant and left flank area. Bowel sounds are present in all 4 quadrants, and were normoactive. EXTREMITIES: No cyanosis or edema noted. Pulse, motor, and sensory were intact in all extremities. Radial and pedal pulses were 2+ bilaterally. Radial and pedal pulses were 3+ bilaterally. INTEGUMENTARY: The patient's skin is pink, warm, and dry. NEUROLOGICAL: Patient is alert and oriented to person, place, time, and situation. She is able to move all extremities. She has equal hand grasps and muscle strength bilaterally. There are no focal neurological deficits noted. ASSESSMENT AND PLAN: 1. Chest pain. For further evaluation of this, we will continue with the series of cardiac enzymes. We will perform an EKG later on this morning and tomorrow as well. We have ordered for the patient to have some nitroglycerin paste. Also, she did receive a full dose aspirin upon her arrival to the ER. The patient's blood pressure has been quite elevated, was initially in the 200s systolically and the 110s to 120s diastolically. This could be contributing to her chest pain. Her blood pressure is improved at this time though we have placed a consult with cardiology. We will await their evaluation and further recommendations for management. 2. Hypertensive urgency. At this time, the patient did receive clonidine 0.3 mg p.o. as well as nitroglycerin paste to the left chest wall. Her blood her blood pressure has since improved. We will continue to monitor this closely. We have continued her regularly prescribed antihypertensive medications. We did have difficulty obtaining IV access for her. She does have orders for PICC line consult. We will continue to follow. 3. Coronary artery disease status post CABG and stent placement. We will continue the patient's regularly prescribed medicines. We have also continued her aspirin, Lipitor, Imdur, Toprol- XL, Ranexa, and her Brilinta. We will await Cardiology evaluation and further recommendations. 4. Hyperlipidemia. We will continue her atorvastatin. We have placed orders for fasting lipid profile tomorrow morning. 5. Diabetes mellitus. We have placed the patient with sliding scale insulin. 6. Deep vein thrombosis prophylaxis will be provided with sequential compression devices. 7. Rheumatoid arthritis. We will continue her Plaquenil. 8. She has been placed on the medical floor with telemetry. She will have vital signs q.4 hours. We will do strict intake and output. Further orders and recommendations pending hospital course, diagnostic studies, and physician evaluation note. Dictated by UNIQUE Bray for Rekha Willingham MD cc: MD Ti Ward MD
[2019-04-21] MEDS: NEURONTIN PO SCH ×2 (10:21→21:58)
[2019-04-21] MEDS: RANEXA PO SCH ×2 (10:22→21:58)
[2019-04-21] MEDS: BRILINTA PO SCH ×2 (10:22→21:58)
[2019-04-21] MEDS ORDERED: TYLENOL PO PRN (12:00)
[2019-04-21] MEDS: PLAQUENIL PO SCH ×2 (12:35→22:07)
[2019-04-21] MEDS: ZOFRAN IV PRN ×3 (12:38→22:56)
--- NOTE | 2019-04-21 12:44 | CARDIOLOGY CONSULTATION ---
DATE: 04/21/2019 HISTORY OF PRESENT ILLNESS: A 54-year-old lady was seen today, who has coronary artery disease, coronary artery bypass grafting, stent placement in 2017, history of diabetes, CVA, who comes with complaints of having recurrent episodes of chest discomfort. The patient describes her chest pain over her left chest as being pressure-like, intermittent. She has taken multiple times nitroglycerin tablets. Symptoms worsened. She came to the emergency room. When she came in, her blood pressure was elevated at 200 systolic. She states she has been taking her medications recently, as well as all along as prescribed. There was no associated diaphoresis. There was no radiation to the back. It has been mainly over her left sternal region. REVIEW OF SYSTEMS: A 14-point review of systems was done. GI: There is no history of nausea, vomiting, diarrhea. There is no history of hematemesis or melena. Central Nervous System: No focal weakness to suggest a CVA, TIA. : There is no dysuria or hematuria. Respiratory: There is no history of cough, expectoration, hemoptysis. Constitutional: There is no history of fevers or chills. PAST MEDICAL HISTORY: 1. Coronary artery disease, status post coronary artery bypass grafting. This was in 2011. She had PLATA to left anterior descending artery, SVG to OM, and SVG to RCA. Last cardiac catheterization was at [facility] on 06/15/2017. Left main 20%, LAD 100%, circumflex had 90% proximal lesion, which was treated with a drug-eluting stent, RCA was 100% occluded, vein graft to RCA historically occluded, vein graft to OM systolically occluded, PLATA to LAD was patent. She had a drug-eluting stent on 06/15/2017. 2. Diabetes. 3. Hyperlipidemia. 4. History of Galarza's palsy. 5. Rheumatoid arthritis. 6. Enterococcal infection in the past. 7. History of stroke affecting the right side with residual speech. PAST SURGICAL HISTORY: 1. Cholecystectomy. 2. Hysterectomy. 3. Bilateral carpal tunnel surgery. 4. Debridement of sternal wound. 5. 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 6. Colon resection in the past. SOCIAL HISTORY: She does not smoke, does not drink. HOME MEDICATIONS: Aspirin 81 mg a day, Lipitor 80, Plaquenil 200, Tresiba Flex, Imdur 30, Glucophage 100 b.i.d., Ranexa 1000 b.i.d., Toprol-XL 50, Ambien 10. PHYSICAL EXAMINATION: Vital Signs: Blood pressure at the time of my examination was 145/84. Cardiovascular: Normal jugular venous pressure. There is no thyromegaly. There is no carotid bruit. First and second heart sounds were heard. There was no S3 gallop. Respiratory: Normal air entry. There are no crepitations or rhonchi. Abdomen: Soft, nontender. There was no guarding or rigidity. Bowel sounds were heard. Central Nervous System: Alert, was moving all 4 extremities. Detailed central nervous system examination was not performed. LABORATORY EXAMINATION: Cardiac enzymes were negative. Sodium 145, potassium 4.9, BUN 1.1, creatinine 1.1. Hematology: WBC 12.28, hemoglobin 10, hematocrit 30.7, platelet count of 365, MCV 91. ASSESSMENT AND PLAN: 1. Ms. Darlene Snyder is a 54-year-old lady with history of cerebrovascular accident, diabetes, hyperlipidemia, hypertension, coronary artery disease status post coronary artery bypass grafting and subsequent intervention in 2017, who comes with complaints of having recurrent episodes of chest discomfort, pressure-like sensation with some radiation to the left side of her shoulder. Given her increasing episodes of chest pain and the patient has unstable angina, I have recommended that she undergo a left heart catheterization. Risks, benefits, and alternatives were explained. The patient will be set up for a left heart catheterization in the morning. 2. She had accelerated hypertension we will increase her Toprol to 50 mg twice a day, and increase her Imdur to 30 mg twice daily. 3. She has had a stent placed, and is on aspirin and Brilinta. I have not made any changes. 4. Diabetes. Continue with the current medications. 5. She is on Lipitor. Will check morning lipid profile. She would probably benefit from repatha/praluent for her LDL cholesterol if it is persistently elevated. We can plan that as outpatient. cc: MD Ti Us MD MTDD
[2019-04-21] MEDS ORDERED: NS 250 ML ONE (13:38)
[2019-04-21] MEDS: IMDUR PO SCH (21:58)
[2019-04-21] MEDS: LIPITOR PO SCH (21:58)
[2019-04-21] MEDS: TOPROL XL PO SCH (21:59)
--- NOTE | 2019-04-22 02:51 | PROGRESS NOTE ---
DATE: 04/21/2019 SUBJECTIVE: This is a 54-year-old female who came in last night with chest pain. The patient was seen by Dr. Garcia. I did review the EKG, nothing acute. She has existing coronary artery disease. She is currently pain free. REVIEW OF SYSTEMS: None reported. PAST MEDICAL HISTORY: Reviewed. PAST SURGICAL HISTORY: Reviewed. MEDICINES: Reviewed. ALLERGIES: Not known. OBJECTIVE: Vital Signs: Temperature is 98 degrees, pulse is 73, blood pressure is 134/72. HEENT: Within normal limits. Neck: Supple. PICC line on the right side noted. Chest: Bilateral air entry. Cardiac: Heart sounds are regular. No murmur. Abdomen: Belly is soft, nontender. LABORATORY INVESTIGATIONS: CBC: White cell count 12, hematocrit 30, platelets 365,000. PT/INR is normal. Cardiac enzymes were negative x3. SMA 7, creatinine 1.1, proBNP 1243. ASSESSMENT AND PLAN: 1. CAD with existing heart disease status post bypass in 2011, and PLATA to LAD is only patent. She had a drug-eluting stent on 06/15/2017, circumflex 90% lesion at that time. I appreciated Dr. Garcia's consult and planning to do left heart catheterization in the morning, and repeat the labs in the morning. Currently the patient is on aspirin, nitroglycerin paste, metoprolol isosorbide, Ranexa and Brilinta. 2. Rheumatoid arthritis on Plaquenil. 3. Chronic neuropathy pain on Neurontin 600 p.o. b.i.d.. Poor IV access PICC line on the right side. 4. Hyperlipidemia on Lipitor 80 mg daily. 5. Diabetes. We will hold the current medicines, which includes metformin. We will follow sliding scale with insulin coverage and we will follow up. LEVEL OF DOCUMENTATION: 25 minutes. cc: Ti Singh MD
[2019-04-22] MEDS: NS 1,000 ML IV SCH (04:46)
[2019-04-22 05:46] LABS: BASO# 0.02 X1000 (0.0-0.2); BASO% 0.2 % (0.0-0.8); EOS# 0.28 X1000 (0.0-0.7); EOS% 3.4 % (0.0-10.0); HEMATOCRIT 27.6 % (37.0-47.0); IMM GRAN# 0.03 X1000 (0.0-0.04); IMM GRAN% 0.4 % (0.0-0.5); LYMPH# 3.72 X1000 (1.2-3.4); LYMPH% 44.7 % (20.5-51.1); MCH 30.4 PG (27-31); MCHC 32.6 g/dL (33-37); MCV 93.2 FL (81-99); MONO# 0.56 X1000 (0.11-0.59); MONO% 6.7 % (1.7-9.3); MPV 10.7 FL (7.4-10.4); NEUT# 3.72 X1000 (1.4-6.5); NEUT% 44.6 % (42.2-75.2); PLT 306 X1000 (130-400); RBC 2.96 XMIL (4.2-5.4); RDW 13.7 % (11.5-14.5); WBC 8.33 X1000 (4.8-10.8)
[2019-04-22 05:48] LABS: INR 1.03; PROTIME 13.6 Seconds (11.0-16.0)
[2019-04-22 06:07] LABS: ALB/GLOB RATIO 1.2; ALBUMIN 3.2 g/dL (3.5-5.0); CALCIUM 8.5 mg/dL (8.8-10.2); CREATININE 1.2 mg/dL (0.5-0.9); POTASSIUM 4.6 mmol/L (3.5-5.1); TOTAL BILIRUBIN 0.22 mg/dL (0.20-1.00); TOTAL PROTEIN 5.9 g/dL (6.3-8.3)
--- NOTE | 2019-04-22 07:12 | ECHO REPORT ---
ORDER DATE: 04/21/2019 MEASUREMENTS: Septal thickness 1.2, left ventricular internal diameter diastole 3.2, posterior wall thickness 1.2, aortic root 2.3, left atrium 4.3. SUMMARY: 1. Technically difficult study due to limited acoustic window quality. 2. Very mild sclerosis of trileaflet aortic valve demonstrated with adequate aortic valve opening evident. Peak gradient across the aortic valve is less than 10 mmHg. Mitral and tricuspid valves are without evidence of structural abnormality while pulmonic valve is not well demonstrated. There is mild mitral regurgitation and trace tricuspid regurgitation. Aortic root is normal size. 3. Normal left ventricular chamber size with mild concentric left hypertrophy is suggested. Estimated left ejection fraction appears to be at least 60%. No regional wall motion abnormality can be appreciated. Left atrium is mildly enlarged. Right atrium and right ventricle are normal size with grossly preserved right ventricular systolic function. 4. No pericardial effusion. 5. Appearance of inferior vena cava suggests normal central venous pressure. CONCLUSIONS: 1. Technically difficult study. 2. Very mild aortic valve sclerosis without stenosis. 3. Mild mitral regurgitation. 4. Normal left ventricular ejection fraction without regional wall motion abnormality evident. 5. Mild left atrial enlargement. cc: MD Chichi Thomas PA Jagan Reddy, MD
[2019-04-22] MEDS ORDERED: HEPARIN 1000 UNITS/NS 2,000 UNIT/1,000 ML IV.SOLN ONE (08:12)
--- NOTE | 2019-04-22 08:34 | EKG Report ---
Test Performed on : 04/22/2019 06:57:21 AM Test Reason : chest pain Blood Pressure : / mmHG Vent. Rate : 074 BPM Atrial Rate : 074 BPM P-R Int : 170 ms QRS Dur : 084 ms QT Int : 416 ms P-R-T Axes : 037 005 058 degrees QTc Int : 461 ms Normal sinus rhythm. Normal ECG Confirmed by Myrna ALBRECHT, Zhao Alcantar ([id number]) on 04/23/2019 7:41:32 AM
[2019-04-22] MEDS ORDERED: MORPHINE ONE (09:03)
[2019-04-22] MEDS ORDERED: VERSED ONE (09:03)
[2019-04-22] MEDS ORDERED: LABETALOL IV ONE (09:30)
[2019-04-22] MEDS ORDERED: APRESOLINE ONE (09:59)
[2019-04-22] MEDS: HUMULIN R SUBQ SCH ×4 (10:20→22:09)
[2019-04-22] MEDS: BRILINTA PO SCH ×2 (10:21→21:48)
[2019-04-22] MEDS: ASPIRIN EC PO SCH (10:21)
[2019-04-22] MEDS: NEURONTIN PO SCH ×2 (10:21→21:47)
[2019-04-22] MEDS: IMDUR PO SCH ×2 (10:21→21:48)
[2019-04-22] MEDS: TOPROL XL PO SCH ×2 (10:22→21:48)
[2019-04-22] MEDS: PLAQUENIL PO SCH ×2 (10:22→21:48)
[2019-04-22] MEDS: RANEXA PO SCH ×2 (10:22→21:48)
--- NOTE | 2019-04-22 13:47 | CARDIAC CATH REPORT ---
PROCEDURE NAME: - PROCEDURE PERFORMED: Left heart catheterization with selective coronary angiography, angiography of left internal mammary artery graft, and left ventriculography. INDICATIONS: Recurrent angina in patient with known coronary artery disease, previous coronary artery bypass grafting, and angioplasty/stenting of proximal left circumflex coronary artery. Previous angiography has demonstrated occlusion of saphenous vein graft to obtuse marginal, and saphenous vein graft to right coronary artery. ENTRY SITE: Right femoral artery. CATHETERS USED: A 5-Swiss JL4, 3DRC, LISA, and angled pigtail. TECHNIQUE: After intravenous sedation with Versed and morphine, local anesthesia with lidocaine was applied over the right femoral artery. Arterial access was established with placement of a 5- Swiss sheath in the right femoral artery using modified Seldinger technique. Selective coronary angiography was performed. Following this, angiography of left internal mammary artery graft was performed. Thereafter, left heart catheterization and left ventriculography were performed. Selective angiography of saphenous vein graft to obtuse marginal and saphenous vein graft to right coronary was not pursued given that these grafts were known to be occluded. During the course of the procedure, the patient manifested systemic arterial hypertension and received intravenous labetalol 10 mg x2 doses and intravenous hydralazine 10 mg x1 dose. Upon completion of the procedure, arterial sheath was removed from the right femoral artery and hemostasis facilitated with manual pressure. The patient tolerated the procedure without apparent complications. FINDINGS: Hemodynamics: Aortic pressure 154/76, left ventricular pressure 174/EDP of 18. Comments on hemodynamics: There is no significant gradient across the aortic valve demonstrated on pullback from the left ventricle. ANGIOGRAPHY: 1. Left ventriculogram: Left ventricle is of normal size. There is a small to medium-sized area of hypokinesis in the high anterior wall. No other wall motion abnormalities are evident on REYES projection. Estimated left ventricular ejection fraction is approximately 60%. There is no significant mitral regurgitation. 2. Left main coronary: The left main coronary demonstrates mild (30 to 40 percent) distal narrowing. 3. Left anterior descending coronary: The eft anterior descending coronary artery is occluded proximally after 1st septal bookkeeper receptionist and 2nd septal bookkeeper receptionist. 4. Left circumflex coronary: The left circumflex coronary demonstrates a widely patent stent proximally. Beyond the area of stent in the mid left circumflex coronary arises a relatively smaller caliber obtuse marginal, which is no more than 1.5 mm in diameter. The obtuse marginal rising from midvessel of the left circumflex coronary demonstrates a segment of occlusion and is reconstituted by collateral flow. Collateral from the distal left circumflex coronary can be seen going to the distal right coronary. 5. Right coronary: The right coronary demonstrates very severe, diffuse atherosclerosis proximally and is occluded proximally. 6. Left internal mammary artery graft to left anterior descending coronary: This graft is widely patent. 7. Saphenous vein graft to obtuse marginal: This graft was not selectively engaged as it was known to be occluded on previous study. The stump of the saphenous vein graft to the obtuse marginal. Can be seen on left ventriculography. 8. Saphenous vein graft to the distal right coronary: This graft was not selectively engaged. It was noted to be occluded on previous angiography. CONCLUSIONS: 1. Severe 3-vessel coronary atherosclerosis. 2. Patent stent in proximal left circumflex coronary and patent left internal mammary artery graft to the left anterior descending coronary. Saphenous vein graft to right coronary and saphenous vein graft to the obtuse marginal known to be occluded. 3. Preserved overall left ventricular systolic function with a small to medium-sized area of hypokinesis in the high anterior wall. cc: MD Ti Thomas MD
[2019-04-22] MEDS: MORPHINE IV PRN ×2 (15:33→22:10)
[2019-04-22] MEDS ORDERED: G.I. COCKTAIL PO ONE (16:25)
[2019-04-22] MEDS: ZOFRAN IV PRN (18:06)
--- NOTE | 2019-04-22 21:22 | PROGRESS NOTE ---
DATE: 04/22/2019 SUBJECTIVE: The patient has intermittent chest pain. PHYSICAL EXAMINATION: Temperature is 98 degrees. Vitals are stable.HEENT: Within normal limits. Neck: Supple. Chest: Clear. Heart sounds are regular. Belly is soft, nontender. LABORATORY: CBC: White cell count 8.3, hematocrit 27.6, platelets 306,000. PT/INR is normal. Creatinine 1.2. ASSESSMENT AND PLAN: 1. Continue IV fluids on 42 mL/h through the PICC line. 2. NPO. 3. Going to left heart catheterization. Based on that, further recommendations will be followed. LEVEL OF DOCUMENTATION: 25 minutes. cc: Ti Singh MD MTDJulien
[2019-04-22] MEDS: LIPITOR PO SCH (21:47)
[2019-04-23] MEDS: MORPHINE IV PRN ×3 (06:14→21:36)
[2019-04-23] MEDS: NS 1,000 ML IV SCH ×2 (07:26→07:27)
[2019-04-23] MEDS: HUMULIN R SUBQ SCH ×4 (07:27→21:01)
[2019-04-23] MEDS: RANEXA PO SCH ×2 (08:34→21:00)
[2019-04-23] MEDS: ASPIRIN EC PO SCH (08:35)
[2019-04-23] MEDS: PLAQUENIL PO SCH ×2 (08:35→21:00)
[2019-04-23] MEDS: BRILINTA PO SCH ×2 (08:35→21:00)
[2019-04-23] MEDS: NEURONTIN PO SCH ×2 (08:35→21:00)
[2019-04-23] MEDS: IMDUR PO SCH ×2 (08:35→21:00)
--- NOTE | 2019-04-23 08:53 | EKG Report ---
Test Performed on : 04/23/2019 06:48:03 AM Test Reason : chest pain Blood Pressure : / mmHG Vent. Rate : 076 BPM Atrial Rate : 076 BPM P-R Int : 180 ms QRS Dur : 088 ms QT Int : 420 ms P-R-T Axes : 033 000 050 degrees QTc Int : 472 ms Normal sinus rhythm. Normal ECG When compared with ECG of 22-APR-2019 06:57, (Unconfirmed) No significant change was found Confirmed by Myrna ALBRECHT, Zhao Alcantar ([id number]) on 04/24/2019 7:42:04 PM
[2019-04-23] MEDS: TOPROL XL PO SCH ×2 (10:26→21:00)
[2019-04-23] MEDS: ZOFRAN IV PRN ×2 (14:10→21:33)
--- NOTE | 2019-04-23 14:28 | GASTROENTEROLOGY CONSULTATION ---
DATE: 04/23/2019 REASON FOR CONSULTATION: Abdominal pain . HISTORY OF PRESENT ILLNESS: Ms. Snyder is a 54-year-old female resting in bed. She had come to the ER on Sunday with complaints of chest pain and shortness of breath. She denied any fever, chills, but had nausea and vomiting on Sunday. She has extensive history of heart problems, coronary artery disease status post bypass surgery, stents replacements, hypertension, hyperlipidemia, CVA and insulin dependent diabetes. She had slight abdominal pain in the epigastric area, radiating to the flank area. She takes aspirin and blood thinner Brilinta. She had 1 bowel movement on Sunday, which was regular, and denied any blood in the stools. Patient feels mild distension of her abdomen. She has a history of pancreatitis and stroke with right-sided weakness with speech difficulty. PAST MEDICAL HISTORY: Coronary artery disease status post bypass surgery, insulin-dependent diabetes type 2, hypertension, hyperlipidemia, history of pancreatitis, rheumatoid arthritis, history of stroke with right-sided weakness, carpal tunnel and history of stents. PAST SURGERIES: She had a splenectomy and cholecystectomy, coronary artery bypass surgery, cardiac stent placements, carpal tunnel surgery, colon resection, hysterectomy, and Port-A-Cath removal. FAMILY HISTORY: Mother has hypertension, diabetes, and her sisters had colon cancer. SOCIAL HISTORY: She is and has 1 kid. Denies smoking or drinking alcohol and she is on disability. ALLERGIES: No known drug allergies. HOME MEDICATIONS: Plaquenil, gabapentin, metformin, atorvastatin, calcium, Ranexa, Venofer, Imdur, Ambien, aspirin, metoprolol, insulin Tresiba and Brilinta. REVIEW OF SYSTEMS: As per HPI, otherwise 12 point review of systems is negative. PHYSICAL EXAM: Vital Signs: Temperature 97.7 degrees, pulse is 79, respirations are 20, blood pressure is 152/91, oxygen saturation 100% on room air. Weight 182.3 pounds, BMI 35.7 kg per meter square, General: She is alert, oriented x3.No acute distress. She is answering all the questions appropriately. HEENT: Pale conjunctivae,no icterus, PERRL. Neck: Supple. Cardiovascular: Regular rate and rhythm. No murmurs, rubs,or gallops heard on auscultation. Lungs: Clear to auscultation in anterior and posterior darby. Abdomen: Soft, distended, and tender in the epigastric area. Active bowel sounds heard in all 4 quadrants. Extremities: No cyanosis, edema, or clubbing noted. 2+ pedal pulses present bilaterally. Neurological: Alert, oriented x3. Nonfocal. Cranial nerves II to XII grossly intact. Labs: WBC 8.37, RBC 2.96, H & H 9.0 and 27.6 Platelet 513494 sodium 144 potassium 4.6 BUN 25 Creatinine 1.2 glucose 199 calcium 8.5 ASSESSMENT AND PLAN: Abdominal pain Nausea and vomiting Chest pain Hypertension CAD Hyperlipidemia Insulin dependent diabetes Rheumatoid arthritis Hx of stroke Hx of pancreatitis Family Hx of colon cancer in 2 sisters. Obesity PLAN: Patient is currently on Brilanta and needs to be off for at least a week for any procedure including EGD and colonoscopy to be done. We will do her EGD outpatient once her cardiac work up is complete. Continue her on Protonix for possible PUD, continue pericolace for bowel regimen and iron supplementation for her anemia. We will continue to monitor her CBC and BMP, follow the plan of care per PCP. This plan was discussed with Dr. Wilson. No plans for inpatient endoscopy or colonoscopy at this time. RTC in 4 weeks for followup and outpatient EGD and colonoscopy. Thank you for your consult. Please call us for any further questions and concerns. Dictated by UNIQUE Maxwell for Justin Wilson MD cc: MD Ti Greene MD Patient seen and examined and I agree with the above plan of care. Discussed the above plan of care with the patient and all questions were answered. Please call us with any further questions. MTDD
[2019-04-23] MEDS ORDERED: SODIUM CHLORIDE 0.9% INJ SCH (15:45)
[2019-04-23] MEDS: PROTONIX IV SCH (17:01)
[2019-04-23] MEDS: ICAR-C PO SCH (21:00)
[2019-04-23] MEDS: PERICOLACE PO SCH (21:00)
[2019-04-23] MEDS: LIPITOR PO SCH (21:00)
--- NOTE | 2019-04-23 21:24 | PROGRESS NOTE ---
DATE: 04/23/2019 SUBJECTIVE: The patient is a little better. Complains of chest pain. Cardiac catheterization was negative. Apparently, Dr. Weiss consulted GI. REVIEW OF SYSTEMS: None reported. OBJECTIVE: Temperature is 97.6 degrees, pulse 84, blood pressure 150/83, 97% on room air.HEENT: Within normal limits. Chest: Clear. Heart sounds are regular. Belly is soft and nontender. Good bowel sounds. ASSESSMENT AND PLAN: 1. Chest pain, noncardiac. Stable catheterization. 2. We will follow up with Gastroenterology evaluation and Dr. Wilson was consulted. 3. Continue secondary prevention. If she is stable, will discharge in the morning. 4. Status post peripherally inserted central catheter line on the right side. Stable. LEVEL OF DOCUMENTATION: 15 minutes. cc: Ti Singh MD
[2019-04-24] MEDS: ZOFRAN IV PRN ×2 (03:10→09:10)
[2019-04-24] MEDS: MORPHINE IV PRN ×2 (03:10→09:11)
[2019-04-24] MEDS: PROTONIX IV SCH (03:11)
[2019-04-24] MEDS: NS 1,000 ML IV SCH (03:46)
[2019-04-24] MEDS: HUMULIN R SUBQ SCH (06:34)
[2019-04-24] MEDS ORDERED: CENTRUM SILVER PO SCH (09:00)
[2019-04-24] MEDS: PERICOLACE PO SCH (09:10)
[2019-04-24] MEDS: NEURONTIN PO SCH (09:10)
[2019-04-24] MEDS: RANEXA PO SCH (09:10)
[2019-04-24] MEDS: PLAQUENIL PO SCH (09:11)
[2019-04-24] MEDS: ASPIRIN EC PO SCH (09:11)
[2019-04-24] MEDS: TOPROL XL PO SCH (09:11)
[2019-04-24] MEDS: IMDUR PO SCH (09:11)
[2019-04-24] MEDS: ICAR-C PO SCH (09:11)
[2019-04-24] MEDS: BRILINTA PO SCH (09:11)
[2019-04-24] MEDS ORDERED: FLU VACCINE IM ONE (09:38)
[2019-04-24 11:05] VITALS: BP 164/86
--- NOTE | 2019-04-24 12:00 | GASTROENTEROLOGY PROGRESS NOTE ---
DATE: 04/24/2019 SUBJECTIVE: Ms. Snyder 54 year old female resting in bed. Denied any nausea, vomiting, or diarrhea but she did mention that she had slight abdominal pain in the epigastric area. On a pain scale she rated it 3. She was able to tolerate her breakfast well. OBJECTIVE: Vital Signs: Her temperature is 97.7 degrees, pulse is 79, respirations are 17, blood pressure is 135/85, oxygen saturation is 99% on room air. Her weight is 182.3 pounds. BMI is 35.7 kg/m2. General: She is alert and oriented x3, and in no acute distress. HEENT: Pale conjunctivae. No icterus. PERRLA. Neck: Supple. Lungs: Clear to auscultation bilaterally in anterior and posterior darby. Cardiovascular: Regular rate and rhythm. No rubs, murmurs, or gallops heard on auscultation. Abdomen: Soft. Distended and tender. Extremities: No clubbing, cyanosis, or edema. 2+ pedal pulses present bilaterally. Neurological: Alert and oriented x3 year. Laboratory Data: WBC 8.3, RBCs 2.96, hemoglobin 9, hematocrit is 27.6, platelet count is 306,000. Sodium is 144, potassium 4.2, chloride 103, carbon dioxide 23, anion gap 8, BUN 25, creatinine 1.2. The patient's echocardiogram on 04/21/2019 showed that the ejection fraction was 60%. Chest x-ray showed critically low lung volumes but no obvious acute disease. IMPRESSION: 1. Abdominal pain. 2. Nausea and vomiting. 3. Chest pain. 4. Hypertension. 5. Coronary artery disease. 6. Hyperlipidemia. 7. Insulin-dependent diabetes. 8. Rheumatoid arthritis. 9. History of stroke. 10. History of pancreatitis. 11. Family history of colon cancer 12. Obesity. PLAN: The patient is currently on Brilinta and needs to be off for at least a week for us to do any procedure including EGD or colonoscopy. We will plan to do her EGD/colonoscopy as an outpatient procedure. We will continue her with Protonix for her PUD. Continue Yasmeen-Colace for her bowel regimen. Iron supplements for anemia. Her H & H today was 9 & 27.6, will continue to monitor her CBCs and BMPs, and also follow the plan of care per PCP. Patient's nausea, vomiting and diarrhea has been resolved, but c/o of abdominal pain, advised her to follow up at our clinic once she is discharged from the hospital. 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 This plan was discussed with Dr. Wilson. Please call us for any further questions or concerns. Dictated by UNIQUE Maxwell for Justin Wilson MD cc: MD Ti Greene MD I have seen and examined the patient myself and I agree with the above plan of care. Discussed the above with the patient and family at bedside and all questions were answered. Please call us with any further questions. ANALILIA
--- NOTE | 2019-04-24 22:04 | DISCHARGE SUMMARY ---
ADMISSION DATE: 04/21/2019 DISCHARGE DATE: 04/24/2019 DISCHARGING DIAGNOSIS: Atypical chest pain. Cardiac catheterization findings are stable. SECONDARY DIAGNOSES: 1. Dysautonomia. 2. Type 2 diabetes. 3. Hyperlipidemia. 4. Hypertension. 5. Rheumatoid arthritis. 6. Coronary artery disease, with stents in the circumflex, status post bypass grafts, occluded except the left internal mammary artery to left anterior descending, stable. 7. Peripherally inserted central catheter line on the right side. PROCEDURES: Left heart catheterization by Dr. Weiss. Findings are stable findings. Patent left internal mammary artery to left anterior descending. Continue medical management. CONSULTS: 1. Dr. Lee Weiss. 2. GI with Dr. Johnson. BRIEF HISTORY: Please see the H and P that was done by hospitalist. In brief, she is a 53-year- old female admitted to the hospital basically with chest pain with underlying CAD. The patient was admitted in telemetry. The patient was ruled out for [place]. EKG nondiagnostic. Dr. Weiss recommended left heart catheterization and with stable findings. The pain is at this time noncardiac, relegated to medical management. Patient also had PICC line for IV access. The rest of the hospital course was uneventful. LABS: CBC: White cell count 8.3, hematocrit 27.6, platelets 306,000. PT/INR is normal. Sodium 144, potassium 4.6, BUN 25, creatinine 1.2, glucose 199. LFTs were normal. Triglycerides 150, cholesterol 131, LDL 82, HDL 32. Patient was anxious to go home. If things will not get better, consider outpatient GI workup. DISCHARGE INSTRUCTIONS: 1. Plaquenil 200 p.o. b.i.d. 2. Gabapentin 600 p.o. b.i.d. 3. Metformin 1000 p.o. b.i.d. 4. Lipitor 80 daily. 5. Ranexa 1000 p.o. b.i.d. 6. Zanaflex 4 mg as needed. 7. Isosorbide 30 daily. 8. Ambien 10 at bedtime. 9. Aspirin 81 mg daily. 10. Metoprolol 50 daily. 11. Tresiba 50 units subcutaneous daily. 12. Brilinta 90 p.o. b.i.d. 13. We will check the CBC and will consider GI workup if things will not get better. 14. Maintain the A1c below 7, LDL less than 70. Slowly, her numbers are getting better and will follow up. 15. She could not tolerate JOHNATHAN inhibitors due to dysautonomia and hypotension. 16. Please follow up in my office in 10 days. cc: MD Lee Chong MD Babu Kantamneni, MD
== END 2019-04-24 12:40 | disposition home or self-care (01) | DRG 287 ==
LOC: ED 23:52 → SUATTDRO 04-21 07:27 → 1N 04-21 07:27 → 2N 04-22 17:12
PROVIDERS: ADMIT Internal Medicine; ATTEND Internal Medicine

== ENCOUNTER 2019-08-22 11:10 | Inpatient (IN) ==
[2019-08-22] MEDS ORDERED: NS 1,000 ML IV ONE ×3 (11:39→16:20)
[2019-08-22] MEDS ORDERED: HUMULIN R IV ONE ×2 (11:44→16:20)
--- NOTE | 2019-08-22 12:10 | Diag Imaging Result Doc PS360 ---
CHEST-PORTABLE - 08/22/2019 INDICATION: AMS COMPARISON: 04/21/2019 FINDINGS: Stable sternotomy wires. The lungs are clear. Heart size is normal. No pneumothorax or pleural effusion. IMPRESSION: Negative exam. Electronically signed by Deondre Ray 08/22/2019 12:08 PM
--- NOTE | 2019-08-22 12:28 | Diag Imaging Result Doc PS360 ---
EXAM: CT HEAD W/O CONTRAST 08/22/2019 HISTORY: er7 TECHNIQUE: This exam was performed using automated exposure control, adjustment of mA or kV according to patient size, and/or use of iterative reconstruction technique. COMMENT: There is no evidence of mass effect, bleed, or abnormal extra-axial fluid collection. There is some lucency in the head of the right caudate nucleus which was also present on the previous study of 02/07/2015. The calvarium is intact. The visualized paranasal sinuses are clear. IMPRESSION: Chronic ischemic microvascular changes. No evidence of acute intracranial disease. Electronically signed by Gerardo Bejarano 08/22/2019 12:26 PM
[2019-08-22] MEDS ORDERED: HUMULIN R 100 UNIT in NS 99 ML IV ONE (12:49)
[2019-08-22 13:02] LABS: ALLEN TEST YES; BE -12.9 mmoll (-3.0-3.0); BLOOD TYPE ARTERIAL; HCO3-(ACT) 14.8 mmoll (20.0-26.0); METHB 0.9 % (0.0-1.5); MODALITY ROOM AIR; O2HB 94.8 % (95.0-99.0); PCO2(98.6) 27 mmHg (35-45); PO2(98.6) 80 mmHg (60-100); SAMPLE BLOOD; SAO2 96.3 % (95.0-100.0); THB 13.5 g/dL (11.5-17.4); pH(98.6) 7.27 (7.35-7.45)
[2019-08-22 13:02] LABS: ALB/GLOB RATIO 1.3; ALBUMIN 4.5 g/dL (3.5-5.0); CALCIUM 10.5 mg/dL (8.8-10.2); CREATININE 2.5 mg/dL (0.5-0.9); MAGNESIUM 1.9 mg/dL (1.5-2.7); POTASSIUM 7.1 mmol/L (3.5-5.1); TOTAL BILIRUBIN 0.33 mg/dL (0.20-1.00); TOTAL PROTEIN 8.1 g/dL (6.3-8.3)
[2019-08-22 13:09] LABS: EOS# 0.01 X1000 (0.0-0.7); EOS% 0.1 % (0.0-10.0); HEMATOCRIT 40.8 % (37.0-47.0); HEMOGLOBIN 13.6 g/dL (12.0-16.0); LYMPH# 1.51 X1000 (1.2-3.4); LYMPH% 11.2 % (20.5-51.1); MCH 32.5 PG (27-31); MCHC 33.3 g/dL (33-37); MCV 97.6 FL (81-99); MONO# 0.36 X1000 (0.11-0.59); MONO% 2.7 % (1.7-9.3); MPV 11.2 FL (7.4-10.4); PLT 293 X1000 (130-400); RBC 4.18 XMIL (4.2-5.4); WBC 13.43 X1000 (4.8-10.8)
[2019-08-22] MEDS ORDERED: POTASSIUM CHLORIDE 10% LIQUID PO PRN (13:16)
[2019-08-22] MEDS ORDERED: SODIUM BICARBONATE 8.4% 100 MEQ in STERILE WATER INJ. 500 ML IV PRN (13:16)
[2019-08-22] MEDS ORDERED: D50W SYRINGE IV PRN ×3 (13:16→16:20)
[2019-08-22] MEDS ORDERED: POTASSIUM CHLORIDE 20 MEQ/SWI 20 MEQ/100 ML IVPB IV PRN ×2 (13:16)
[2019-08-22] MEDS ORDERED: POTASSIUM CHLORIDE 20% LIQUID PO PRN (13:16)
[2019-08-22] MEDS ORDERED: MAGNESIUM SULFATE 2 GM/S.W.I. 2 GM/50 ML IVPB IV PRN (13:16)
[2019-08-22] MEDS ORDERED: SODIUM PHOSPHATE 30 MMOL in D5W 250 ML IV PRN (13:16)
--- NOTE | 2019-08-22 13:35 | EKG Report ---
Test Performed on : 08/22/2019 1:00:20 PM Test Reason : AMS Blood Pressure : / mmHG Vent. Rate : 118 BPM Atrial Rate : 118 BPM P-R Int : 138 ms QRS Dur : 084 ms QT Int : 344 ms P-R-T Axes : 051 020 069 degrees QTc Int : 482 ms Sinus tachycardia. Possible Left atrial enlargement Borderline ECG When compared with ECG of 23-APR-2019 06:48, Vent. rate has increased BY 42 BPM Unconfirmed Result
[2019-08-22 13:45] LABS: INR 1.09; PROTIME 14.2 Seconds (11.0-16.0); PTT 20.8 Seconds (22.3-41.8)
[2019-08-22] MEDS ORDERED: NS 250 ML ONE (14:11)
[2019-08-22 14:28] LABS: URINE SOURCE CLEAN CATCH
[2019-08-22 14:34] LABS: BILIRUBIN URINE NEGATIVE (NEGATIVE); BLOOD URINE NEGATIVE (NEGATIVE); COLOR YELLOW; GLUCOSE URINE >1000 mg/dL (NEGATIVE); KETONE URINE 20 mg/dL (NEGATIVE); LEUKOCYTES URINE NEGATIVE (NEGATIVE); NITRITE URINE NEGATIVE (NEGATIVE); PROTEIN URINE 30 mg/dL (NEGATIVE); SP GRAVITY URINE 1.031; TURBIDITY URINE CLEAR (CLEAR); UR EPITHELIAL CELLS <10 /HPF (<10); URINE BACTERIA NEGATIVE /HPF; URINE WBC <10 /HPF (<10); UROBILINOGEN URINE NORMAL (NORMAL)
[2019-08-22 14:42] LABS: UR AMPHETAMINES QUAL NONE DETECTED (NONE DETECT); UR BARBITUATES QUAL NONE DETECTED (NONE DETECT); UR BENZODIAZEPIN QUAL NONE DETECTED (NONE DETECT); UR CANNABINOIDS QUAL NONE DETECTED (NONE DETECT); UR COCAINE QUAL NONE DETECTED (NONE DETECT); UR METHADONE QUAL NONE DETECTED (NONE DETECT); UR OPIATES QUAL NONE DETECTED (NONE DETECT); UR OXYCODONE QUAL NONE DETECTED (NONE DETECT); UR PCP QUAL NONE DETECTED (NONE DETECT)
--- NOTE | 2019-08-22 15:06 | PROVIDER DOCUMENTATION ---
This chart was entered by Hafsa Sandoval Scribe, acting as scribe for Maurilio Beebe MD. HPI-General Adult - General Chief Complaint: Altered Mental Status Stated Complaint: BP HIGH DROWSY SHAKING Time Seen by Provider: 08/22/19 11:31 Source: patient, family () Allergies/Adverse Reactions: Patient Allergies Allergy/AdvReac Type Severity Reaction Status Date / Time No Known Allergies Allergy Verified 08/22/19 13:08 Home Medications: Home Medication List Medication Instructions Recorded Confirmed Last Taken Type Atorvastatin Calcium [Lipitor] 80 mg PO DAILY 01/28/16 08/22/19 12/03/18 History Gabapentin 600 mg PO BID 01/28/16 08/22/19 06/11/17 History Metformin [Glucophage] 1,000 mg PO BID 01/28/16 08/22/19 12/04/18 History Isosorbide Mononitrate E.r. [Imdur] 30 mg PO DAILY 12/05/16 08/22/19 12/04/18 History Ranolazine [Ranexa] 1,000 mg PO BID 12/05/16 08/22/19 12/04/18 History Tizanidine [Zanaflex] 4 mg PO HS PRN PRN 12/05/16 08/22/19 1 Day Ago History ~06/10/17 Zolpidem [Ambien] 5 mg PO HS PRN PRN 08/23/17 08/22/19 Unknown History Aspirin [Aspir-Low] 81 mg PO DAILY 10/13/17 08/22/19 12/04/18 History Ticagrelor [Brilinta] 90 mg PO BID 04/21/19 08/22/19 Unknown History Metoclopramide HCl 1 tab PO DAILY 08/22/19 08/22/19 Unknown History Metoprolol Succinate E.r. [Toprol 1 tab PO DAILY 08/22/19 08/22/19 Unknown History Xl] Niacin [Niacin ER] 1 tab PO BID 08/22/19 08/22/19 Unknown History - History of Present Illness -Gen Adult Nature of Presenting Problems: 54 yobf presents to the ed via pov with . pt sts last night pt w as at baseline but this a at 0400am pt was confused with altered speech. pt is diabetic and fsbg greater then 500. pt on exam is confused but has no sensory or focal weakness. pt denies pain on exam Location of Pain/Injury: reports: none Pain Radiation: reports: no radiation Quality of Pain: reports: none Severity: reports: moderate Onset/Duration: reports: this morning (0400am when pt was found confused) Timing: reports: still present Context/Activities at Onset: reports: light activity Modifying Factors: improves with: nothing Associated Symptoms: denies: back/neck pain, chest pain, fever/chills, nausea, vomiting Similar Symptoms Previously?: Yes (DKA) Recently seen or treated by another doctor?: No - Diabetes Related Context Context: reports: high blood sugar, change in mental status, prior DKA hospitalization Review of Systems - Adult - REVIEW OF SYSTEMS - ADULT Constitutional: denies: chills, fever Eyes: reports: no symptoms reported Ears, Nose, Mouth & Throat: reports: no symptoms reported Cardiovascular: denies: chest pain, palpitations Respiratory: denies: cough, shortness of breath Gastrointestinal: denies: abdominal pain, diarrhea, nausea, vomiting Genitourinary: reports: no symptoms reported Musculoskeletal: denies: back pain, neck pain Integumentary: reports: no symptoms reported Neurological: reports: see HPI, slurred speech. denies: dizziness/vertigo, headache/migraines Psychiatric: reports: no symptoms reported Endocrine: reports: no symptoms reported Hematologic/Lymphatic: reports: no symptoms reported Allergic/Immunologic: reports: no symptoms reported All Other Systems: Reviewed and Negative Past History - Adult - PAST MEDICAL HISTORY-ADULT Review of Records: reports: Old Records Reviewed, Nursing Assessment Review, Medications Reviewed, Social history reviewed & non-contributory. Major Childhood Illnesses: reports: denies history Cardiovascular: reports: blood clots (DVT), CAD, HTN, hyperlipidemia Respiratory: reports: sleep apnea Gastrointestinal: reports: denies history Obstetrical/Gynecological: reports: denies history Genitourinary: reports: denies history Musculoskeletal: reports: arthritis Neurological: reports: denies history Endocrine/Immune: reports: Diabetes Other Conditions: reports: denies history - PRIOR SURGERIES/PROCEDURES Surgical/Procedure History: reports: CABG, cholecystectomy, hysterectomy, other (splenectomy) - PRIOR HOSPITALIZATIONS Prior Hospitalizations: reports: for other non-related, other (none recent) - IMMUNIZATION STATUS Childhood Immunizations: See Nurse Assessment Flu Vaccine: See Nurse Assessment - FAMILY HISTORY Family History: reviewed, not pertinent - SOCIAL HISTORY Smoking: denies Substance Use: denies Living Situation: family Physical Exam-General - PHYSICAL EXAM-ADULT Exam Limited by: pt is confused and is poor historian. pt has FSBG greater 500 Initial Vital Signs Reviewed: Yes - CONSTITUTIONAL General Appearance: appears well, alert, mild distress, obese - EYES Eyes: PERRL/EOMI, pink conjunctivae - HEAD, EARS, NOSE, MOUTH & THROAT HENMT: moist mucous membranes - NECK Neck: non-tender, full range of motion, supple, normal inspection - RESPIRATORY Respiratory: chest non-tender, lungs clear, normal breath sounds - CARDIOVASCULAR Cardiovascular: normal peripheral pulses, tachycardia (120) - CHEST (BREASTS) Chest/Breast: deferred - GASTROINTESTINAL (ABDOMEN) Abdominal Exam: normal bowel sounds, non tender, soft - GENITOURINARY Female Genitalia/Pelvic Exam: deferred Rectal Exam: deferred Hemoccult Exam: deferred - LYMPHATIC Lymphatic: no adenopathy - MUSCULOSKELETAL Back Exam: no CVA tenderness, no vertebral tenderness Extremity: normal range of motion, normal gait, normal inspection, no pedal edema, no calf tenderness, normal capillary refill - SKIN Integumentary: normal color, normal turgor, warm/dry - NEUROLOGIC Neurologic: no motor/sensory deficits - PSYCHIATRIC Psych/Mental Status: other (pt is confused on exam) Progress - PLAN OF CARE/RESULTS Progress/Plan/Lab Results: Vital Signs - 8 hr 08/22/19 11:13 Temperature 99.2 F Pulse Rate 120 H Respiratory Rate 18 Blood Pressure 167/93 O2 Sat by Pulse Oximetry 97 Orders Category Date Time Status CT HEAD W/O CONTRAST [CT] Stat Exams 08/22/19 11:22 Ordered Result Diagrams: 08/22/19 12:03 08/22/19 12:03 - REASSESSMENT Reassessment #1 Time Reassessed: 12:51 Status: unchanged (CT HEAD OK, MODERATE KETONES: DKA; ORDERING INSULIN GTT.) Reassessment #2 Time Reassessed: 14:41 Status: unchanged (K+ &>! MAY BE HEMOLYSED< REGARLESS < BOLUS INSULIN AND INSULIN GTT INFUSING) - EKG 1 Time of EKG reading by physician:: 13:00 EKG Read and Signed by:: Maurilio Beebe EKG Interpretation (*Must complete 3 of following elements*): Normal (borderline) Rate: 118 Rhythm: sinus tachycardia [place]: normal QRS: normal CA Interval: normal ST Wave: normal Comments: possible left atrial enlargement - XRAY 1 XRAY: Bilateral XRAY Study: Chest Impression: See EMR Report (CHEST-PORTABLE - 08/22/2019 INDICATION: AMS COMPARISON: 04/21/2019 FINDINGS: Stable sternotomy wires. The lungs are clear. Heart size is normal. No pneumothorax or pleural effusion. IMPRESSION: Negative exam. Electronically signed by Deondre Ray 08/22/2019 12:08 PM 08/22/19 1208 Interpreting Physician: Deondre Ray MD Dictated Date/Time: 08/22/19 1207 cc: Maurilio Beebe MD; Donell Cedeno MD) - CT/MRI 1 CT Study: Head Impression: See EMR Report (EXAM: CT HEAD W/O CONTRAST 08/22/2019 HISTORY: er7 TECHNIQUE: This exam was performed using automated exposure control, adjustment of mA or kV according to patient size, and/or use of iterative reconstruction technique. COMMENT: There is no evidence of mass effect, bleed, or abnormal extra-axial fluid collection. There is some lucency in the head of the right caudate nucleus which was also present on the previous study of 02/07/2015. The calvarium is intact. The visualized paranasal sinuses are clear. IMPRESSION: Chronic ischemic microvascular changes. No evidence of acute intracranial disea se. Electronically signed by Gerardo Bejarano 08/22/2019 12:26 PM 08/22/19 1226 Interpreting Physician: Gerardo Bejarano MD Dictated Date/Time: 08/22/19 1224 cc: Maurilio Beebe MD; Donell Cedeno MD) - CONSULTS/PCP/HOSPITALIST Notification #1 *Consult/PCP/Hospitalist*: dr cedeno pmd Time Discussed: 14:00 Consult Disposition: Admit Departure - Departure Date of Disposition Decision: 08/22/19 Time of Disposition Decision: 14:01 DIAGNOSIS: DKA (diabetic ketoacidoses) Qualifiers: Diabetes mellitus type: type 2 Diabetes mellitus complication detail: without coma Qualified Code(s): E11.10 - Type 2 diabetes mellitus with ketoacidosis without coma Disposition: ADMITTED INPATIENT 09 Certified Medical Emergency: Emergent Condition: Serious Referrals and Follow-Ups: Donell Cedeno MD [Primary Care Provider] - - Critical Care Note This patient required my direct & personal management of CC.: Yes Total Time (mins): 37 Critical Care Statement: This patient required my direct personal management to treat or rule out processes, the absence of which, could potentiallly result in sudden, clinically significant life or limb threatening deterioration. Attestation - Physician/ DEAN Attestation Patient care was provided by Advanced Practice Provider:: No The physician spent face to face time with patient:: Yes Advanced Practice Provider documentation review:: Supervising physician onsite and consulted in the evaluation and care of this patient. The physician did have a face to face encounter with the patient. This chart was documented by the indicated scribe, (Hafsa Sandoval Scribe) and accurately reflects the services I performed and decisions made by me, Maurilio Beebe MD, as attested by the provider's signature.
[2019-08-22] MEDS: NS 1,000 ML IV SCH ×2 (15:30→17:15)
[2019-08-22 16:15] LABS: CALCIUM 9.6 mg/dL (8.8-10.2); CREATININE 2.3 mg/dL (0.5-0.9); POTASSIUM 5.5 mmol/L (3.5-5.1)
[2019-08-22] MEDS ORDERED: ZOFRAN IV PRN (16:20)
[2019-08-22] MEDS ORDERED: HUMULIN R 100 UNIT in NS 100 ML IV SCH (16:20)
[2019-08-22] MEDS ORDERED: SODIUM CHLORIDE 0.9% INJ SCH (18:30)
[2019-08-22] MEDS ORDERED: NEXIUM IV SCH (18:30)
[2019-08-22 18:34] LABS: CALCIUM 9.6 mg/dL (8.8-10.2); CREATININE 2.5 mg/dL (0.5-0.9); MAGNESIUM 1.5 mg/dL (1.5-2.7); PHOSPHORUS 2.3 mg/dL (2.7-4.5); POTASSIUM 4.6 mmol/L (3.5-5.1)
[2019-08-22] MEDS ORDERED: POTASSIUM PHOSPHATE 30 MEQ in NS 250 ML IV ONE (19:20)
[2019-08-22] MEDS: PROTONIX IV SCH (19:35)
[2019-08-22] MEDS: SODIUM CHLORIDE 0.9% INJ SCH (19:35)
[2019-08-22] MEDS: DILAUDID IV PRN (19:36)
[2019-08-22] MEDS: LOVENOX SUBQ SCH (19:36)
[2019-08-22 23:05] LABS: CALCIUM 9.4 mg/dL (8.8-10.2); CREATININE 2.2 mg/dL (0.5-0.9); MAGNESIUM 1.5 mg/dL (1.5-2.7); PHOSPHORUS 1.9 mg/dL (2.7-4.5); POTASSIUM 4.7 mmol/L (3.5-5.1)
[2019-08-23 01:55] LABS: CALCIUM 9.5 mg/dL (8.8-10.2); CREATININE 2.1 mg/dL (0.5-0.9); MAGNESIUM 1.4 mg/dL (1.5-2.7); PHOSPHORUS 3.6 mg/dL (2.7-4.5); POTASSIUM 4.7 mmol/L (3.5-5.1)
[2019-08-23 05:45] LABS: CALCIUM 9.7 mg/dL (8.8-10.2); MAGNESIUM 1.4 mg/dL (1.5-2.7); PHOSPHORUS 3.1 mg/dL (2.7-4.5); POTASSIUM 4.6 mmol/L (3.5-5.1)
--- NOTE | 2019-08-23 07:04 | HISTORY AND PHYSICAL ---
CHIEF COMPLAINT: Altered mental status, blood pressure is high, drowsy, shaking. HISTORY OF PRESENT ILLNESS: She is a 54-year-old female was brought in by the that she was confused since 4 o'clock this morning, altered speech. Blood sugars were running high. According to the nurses, she stopped taking Tresiba. She has a PICC line on the right side before. She has a poor IV access. Emergency room workup revealed she has full DKA. CT head was negative. Sinus tachycardia. She was very dry. Further workup revealed she is acidotic, anion gap was 23, creatinine 2.5, blood sugar was 800. The patient has significant ketones and moderate acetone levels in the urine. Urine toxic screen was negative. Waiting to be admitted in ICU and initiated admission for DKA protocol in the emergency room. The patient was seen twice tonight. Apparently there was confusion whether she stopped taking the insulin or not. The patient was admitted here last year in April. PAST MEDICAL HISTORY: 1. Complicated diabetes, which includes peripheral neuropathy, retinopathy. 2. CAD. 3. Gastroparesis. 4. History of pancreatitis due to hyperlipidemia. 5. 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 6. Hyperlipidemia. 7. Hypertension. 8. Rheumatoid arthritis. 9. Left lacunar stroke. 10. History of left internal jugular vein thrombosis due to Port-A-Cath. PAST SURGICAL HISTORY: Stent in the circumflex, bypass surgery in 2011, cholecystectomy, hysterectomy, bilateral carpal tunnel surgery, history of port removed on the right side, left heart catheterization in April, stable PLATA graft. MEDICATIONS: 1. Gabapentin 600 p.o. b.i.d. 2. Metformin 1000 p.o. b.i.d. 3. Lipitor 80 mg daily. 4. Ranexa 1000 mg p.o. b.i.d. 5. Tizanidine 4 mg at bedtime. 6. Imdur 30 mg daily. 7. Ambien 5 mg at bedtime. 8. Aspirin 81 mg daily. 9. Brilinta 90 p.o. b.i.d. 10. Metoprolol 50 daily. 11. Niacin 1000 p.o. b.i.d. 12. Metoclopramide 10 mg daily. 13. Tresiba 50 units once daily and sliding scale with insulin coverage. ALLERGIES: Reglan, cardiac dyskinesia. SOCIAL HISTORY: She is . 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 No smoking. No drugs no alcohol abuse. Lives in [place]. FAMILY HISTORY: Father at age 50 ME and mother is 87, of dementia. HEALTH MAINTENANCE: Flu vaccine 2018. Colonoscopy 07/2014. Pneumococcal vaccine 13 was given 05/31/2017. Pneumococcal vaccine 23 was given 07/16/2013. EXAMINATION: Vital signs: She is tachycardic. Blood pressure was high and 99% on room air. She is confused and tachycardic, tachypneic. General: is at bedside. Very dry. Able to follow with verbal commands. PICC line seen on the right side of the arm. Chest: Is bilateral air entry. Abdomen: Belly is soft, nontender. Extremities: Very dry. Neurologic: No obvious deficits. LABS: White cell count 13.43, hematocrit 40, platelets 293,000. PT 14. INR 1.0. ABG pH is 7.27, pCO2 27, PO2 80 on room air. Sodium 132, potassium 4.6, BUN 30, creatinine 2.5, glucose 794. A1c 13. Phosphorus 2.3. CK was normal. Urine toxic screen negative, moderate acetone. ASSESSMENT AND PLAN: 1. A 54-year-old female admitted to the hospital with DKA with anion gap metabolic acidosis, azotemia. Continue on King catheter. Follow up on DKA protocol, IV fluids, IV insulin. 2. Replace potassium and phosphate. 3. DVT GI prophylaxis with Lovenox and Protonix. 4. Abdominal pain. We will use Dilaudid as needed. Waiting to be admitted in the ICU. Apparently, patient stopped taking Tresiba. 5. We will hold the home medications. 6. History of allergies to metoclopramide due to tardive dyskinesia. 7. Health maintenance: Flu vaccine and pneumococcal vaccine are up-to-date and we will follow up. cc: MD Jose Luis Chong MD MTDD
[2019-08-23] MEDS ORDERED: MAGNESIUM SULFATE 2 GM/S.W.I. 2 GM/50 ML IVPB IV ONE (08:53)
[2019-08-23 11:10] LABS: CALCIUM 9.6 mg/dL (8.8-10.2); CREATININE 1.9 mg/dL (0.5-0.9); MAGNESIUM 1.9 mg/dL (1.5-2.7); PHOSPHORUS 3.1 mg/dL (2.7-4.5); POTASSIUM 4.6 mmol/L (3.5-5.1)
--- NOTE | 2019-08-23 12:17 | EKG Report ---
Test Performed on : 08/23/2019 11:33:28 AM Test Reason : tachycardia, ekg change on telemetry Blood Pressure : / mmHG Vent. Rate : 120 BPM Atrial Rate : 120 BPM P-R Int : 128 ms QRS Dur : 078 ms QT Int : 300 ms P-R-T Axes : 048 008 145 degrees QTc Int : 424 ms Sinus tachycardia. with premature atrial complexes. Possible Anterior infarct , age undetermined T wave abnormality, consider lateral ischemia Abnormal ECG When compared with ECG of 22-AUG-2019 13:00, (Unconfirmed) premature atrial complexes. are now present Nonspecific T wave abnormality now evident in Inferior leads T wave inversion now evident in Lateral leads Confirmed by Stefania Olsen MD ([id number]) on 08/25/2019 4:14:19 PM
[2019-08-23] MEDS ORDERED: LANTUS INSULIN SUBQ ONE (12:26)
[2019-08-23] MEDS: D5 1/2 NS 1,000 ML IV SCH (13:00)
[2019-08-23] MEDS: CARDIZEM 100 MG/NS 100 MG/100 ML IVPB IV SCH (15:08)
[2019-08-23] MEDS: PROTONIX IV SCH (17:48)
[2019-08-23] MEDS: LOVENOX SUBQ SCH (17:48)
[2019-08-23] MEDS: HUMULIN R SUBQ SCH ×2 (17:48→20:43)
[2019-08-23] MEDS: SODIUM CHLORIDE 0.9% INJ SCH (17:48)
--- NOTE | 2019-08-23 20:48 | PROGRESS NOTE ---
DATE: 08/23/2019 SUBJECTIVE: The patient was still waiting to be admitted and seen in the emergency room. She is tachycardic, questionable in and out atrial fibrillation, and hypertensive. Mental status is improving. The patient is still on insulin drip. She wants to drink some liquids. OBJECTIVE: Temperature is 99 degrees, tachycardic, hypertensive, 97% on room air. Dry mucous membranes.Neck: Supple. Chest: Bilateral air entry. Heart sounds are tachycardic. Belly is soft, nontender. PICC line on the right side noted. LABORATORY DATA: Sodium 144, potassium 4.6, BUN 26, creatinine 0.9, glucose 200. Magnesium, calcium, phosphorus were normal. ASSESSMENT AND PLAN: 1. Diabetic ketoacidosis. On protocol. Change the IV fluids to D5 half-normal saline 80/hour. Continue to replace the potassium, magnesium phosphate. Anion gap is 13. Start on Tresiba insulin 30 units at noon time and discontinue insulin drip around 6 p.m., and follow up on insulin sliding scale with insulin coverage. 2. Tachycardia in and out, along with hypertension. We will use the IV Cardizem drip. 3. Deep vein thrombosis and gastrointestinal prophylaxis with Lovenox and Protonix respectively. 4. We will slowly reconcile home medications and will follow up. LEVEL OF DOCUMENTATION: 25 minutes. cc: MD Jose Luis Chong MD
[2019-08-23] MEDS: DILAUDID IV PRN (23:41)
[2019-08-24] MEDS: CARDIZEM 100 MG/NS 100 MG/100 ML IVPB IV SCH ×3 (00:51→20:53)
[2019-08-24] MEDS: D5 1/2 NS 1,000 ML IV SCH ×3 (03:34→20:25)
[2019-08-24] MEDS: HUMULIN R SUBQ SCH ×4 (06:29→20:54)
[2019-08-24 07:45] LABS: BASO# 0.02 X1000 (0.0-0.2); BASO% 0.2 % (0.0-0.8); EOS# 0.05 X1000 (0.0-0.7); EOS% 0.4 % (0.0-10.0); HEMATOCRIT 33.3 % (37.0-47.0); IMM GRAN# 0.04 X1000 (0.0-0.04); IMM GRAN% 0.3 % (0.0-0.5); LYMPH# 2.73 X1000 (1.2-3.4); LYMPH% 22.2 % (20.5-51.1); MCH 32.8 PG (27-31); MCV 99.4 FL (81-99); MONO# 0.92 X1000 (0.11-0.59); MONO% 7.5 % (1.7-9.3); MPV 10.7 FL (7.4-10.4); NEUT# 8.56 X1000 (1.4-6.5); NEUT% 69.4 % (42.2-75.2); PLT 220 X1000 (130-400); RBC 3.35 XMIL (4.2-5.4); RDW 12.6 % (11.5-14.5); WBC 12.32 X1000 (4.8-10.8)
[2019-08-24 08:12] LABS: CALCIUM 9.3 mg/dL (8.8-10.2); CREATININE 1.6 mg/dL (0.5-0.9); MAGNESIUM 1.7 mg/dL (1.5-2.7); PHOSPHORUS 3.1 mg/dL (2.7-4.5); POTASSIUM 4.6 mmol/L (3.5-5.1)
[2019-08-24] MEDS ORDERED: LOPRESSOR 10 MG in NS 50 ML IV ONE (11:12)
[2019-08-24] MEDS: DILAUDID IV PRN (11:19)
[2019-08-24] MEDS: NITROGLYCERIN TOP SCH ×3 (11:39→23:35)
--- NOTE | 2019-08-24 11:52 | Diag Imaging Result Doc PS360 ---
EXAM: CHEST-PORTABLE 08/24/2019 HISTORY: sob TECHNIQUE: Erect AP portable at 1121 COMMENT: The inspiration is somewhat suboptimal. There is a PICC line with its tip just above the right atrium. Compared to the previous study of 08/22/2019 the inspiration is less optimal but otherwise are has been no significant change. IMPRESSION: No acute disease. Poor inspiration. Electronically signed by Gerardo Bejarano 08/24/2019 11:50 AM
[2019-08-24] MEDS ORDERED: DILAUDID IV PRN (12:18)
--- NOTE | 2019-08-24 15:35 | PROGRESS NOTE ---
DATE: 08/24/2019 SUBJECTIVE: The patient is agitated, combative. Complains of chest pain, shortness of breath. Getting out of the bed. She is tachycardic and blood pressure is running high. She has a King catheter, PICC line on the right side. REVIEW OF SYSTEMS: Uncomfortable. OBJECTIVE: On examination, temperature is 98.9 degrees, pulse is 95, blood pressure is high, and 98% on room air. The patient is restless, agitated. Chest is clear. Heart sounds are tachycardic. Belly is soft, nontender. No peripheral edema. Labs: White cell count 12.3, platelets 220,000. Sodium 139, potassium 4.6, chloride 108, BUN 22, creatinine 1.6, anion gap was 15, glucose 325. CK is normal. Blood cultures were negative. Chest x-ray was stable. EKG, sinus tachycardia with PACs. ASSESSMENT AND PLAN: 1. Diabetic ketoacidosis is resolving. 2. Azotemia is getting better. 3. Increasing Lantus, 40 units at 9 o'clock. 4. Decrease intravenous fluids, 50 an hour. 5. Advance the diet as tolerated. 6. Chest pain, tachycardic, elevated blood pressure. Intravenous Cardizem 10 mg per hour. 7. Dilaudid for pain and rule out myocardial infarction. Serial cardiac enzymes, nitroglycerin paste, intravenous Lopressor. Slowly reconcile home medication. I spoke to the patient this morning there at bedside. The patient was seen 2 times in the [facility]. Condition is guarded. LEVEL OF DOCUMENTATION: 35 minutes. cc: Ti Singh MD
--- NOTE | 2019-08-24 16:57 | EKG Report ---
Test Performed on : 08/24/2019 11:47:42 AM Test Reason : chest pain Blood Pressure : / mmHG Vent. Rate : 093 BPM Atrial Rate : 093 BPM P-R Int : 150 ms QRS Dur : 078 ms QT Int : 340 ms P-R-T Axes : 038 -07 047 degrees QTc Int : 422 ms Normal sinus rhythm. Cannot rule out Anterior infarct (cited on or before 23-AUG-2019) Abnormal ECG When compared with ECG of 23-AUG-2019 11:33, (Unconfirmed) premature atrial complexes. are no longer present Serial changes of evolving Anterior infarct present Confirmed by Stefania Olsen MD ([id number]) on 08/25/2019 4:14:50 PM
[2019-08-24] MEDS: LOVENOX SUBQ SCH (17:46)
[2019-08-24] MEDS: PROTONIX IV SCH (17:46)
[2019-08-24] MEDS: SODIUM CHLORIDE 0.9% INJ SCH (17:46)
[2019-08-24] MEDS: BRILINTA PO SCH (20:53)
[2019-08-24] MEDS: LANTUS INSULIN SUBQ SCH (20:54)
[2019-08-24] MEDS: LOPRESSOR IV PRN (21:57)
[2019-08-25] MEDS: HUMULIN R SUBQ SCH ×4 (06:13→21:43)
[2019-08-25] MEDS: NITROGLYCERIN TOP SCH (06:13)
[2019-08-25 06:48] LABS: BASO# 0.01 X1000 (0.0-0.2); BASO% 0.1 % (0.0-0.8); EOS# 0.09 X1000 (0.0-0.7); EOS% 0.9 % (0.0-10.0); HEMATOCRIT 32.9 % (37.0-47.0); HEMOGLOBIN 11.1 g/dL (12.0-16.0); IMM GRAN# 0.04 X1000 (0.0-0.04); IMM GRAN% 0.4 % (0.0-0.5); LYMPH# 2.58 X1000 (1.2-3.4); LYMPH% 25.1 % (20.5-51.1); MCH 31.8 PG (27-31); MCHC 33.7 g/dL (33-37); MCV 94.3 FL (81-99); MONO# 0.74 X1000 (0.11-0.59); MONO% 7.2 % (1.7-9.3); MPV 10.7 FL (7.4-10.4); NEUT# 6.82 X1000 (1.4-6.5); NEUT% 66.3 % (42.2-75.2); PLT 218 X1000 (130-400); RBC 3.49 XMIL (4.2-5.4); RDW 12.5 % (11.5-14.5); WBC 10.28 X1000 (4.8-10.8)
[2019-08-25 07:43] LABS: CALCIUM 9.3 mg/dL (8.8-10.2); CREATININE 1.2 mg/dL (0.5-0.9); POTASSIUM 3.8 mmol/L (3.5-5.1)
[2019-08-25] MEDS ORDERED: AMBIEN PO PRN (08:06)
[2019-08-25] MEDS: LOPRESSOR IV PRN (08:08)
[2019-08-25] MEDS: CARDIZEM 100 MG/NS 100 MG/100 ML IVPB IV SCH (08:08)
[2019-08-25] MEDS: ASPIRIN EC PO SCH (08:09)
[2019-08-25] MEDS: LANTUS INSULIN SUBQ SCH (08:09)
[2019-08-25] MEDS: LIPITOR PO SCH (08:09)
[2019-08-25] MEDS: TOPROL XL PO SCH (08:09)
[2019-08-25] MEDS: BRILINTA PO SCH ×2 (08:09→21:43)
[2019-08-25] MEDS: IMDUR PO SCH (08:29)
[2019-08-25] MEDS: RANEXA PO SCH ×2 (08:29→21:43)
[2019-08-25] MEDS: NEURONTIN PO SCH ×2 (08:29→21:43)
[2019-08-25] MEDS: D5 1/2 NS 1,000 ML IV SCH ×2 (08:30→17:32)
[2019-08-25] MEDS: LOVENOX SUBQ SCH (17:32)
[2019-08-25] MEDS: SODIUM CHLORIDE 0.9% INJ SCH (17:32)
[2019-08-25] MEDS: PROTONIX IV SCH (17:32)
--- NOTE | 2019-08-25 21:55 | PROGRESS NOTE ---
DATE: 08/25/2019 SUBJECTIVE: The patient seems to be a little better. Mental confusion off and on and blood pressure is controlled. Heart rate is coming down. No chest pain. No shortness of breath. Family was not at bedside and the patient is tolerating the tablets. REVIEW OF SYSTEMS: Mental confusion. No focal symptoms. Restless, smacking of the lips all the time. PHYSICAL EXAMINATION: Temperature is 98 degrees, pulse is 89, blood pressure 112 by 71, room air 100%.HEENT Exam: Smacking of the lips, restless. Neck: Supple. PICC line on the right side. Chest: Clear. Heart: Sounds are regular. Abdomen: Belly is soft, nontender. Neurologic: No obvious deficits. INVESTIGATIONS: White cell count 10, hematocrit 32, platelets 218,000. Sodium 145, potassium 3.8, chloride 109 BUN 11, creatinine 1.2, glucose 295. Cardiac enzymes were negative. ASSESSMENT AND PLAN: 1. Diabetic ketoacidosis, resolving. 2. Altered mental status due to delirium. 3. Tachycardia hypertension, better. Titrate the Cardizem drip. 4. Swallowing evaluation. 5. Peripherally inserted central catheter line on the right side, stable. 6. Elevated white cell count. No signs of infection at this time. Continue to monitor, getting better. 7. Chest pain ruled out with underlying ischemic heart disease, patent PLATA graft and restart on the medicines: Aspirin, isosorbide, metoprolol, Ranexa and Brilinta. 8. Chronic insomnia. Ambien as needed. 9. Deep vein thrombosis and gastrointestinal prophylaxis with Lovenox and Protonix. 10. Hyperlipidemia on Lipitor. 11. Diabetes. The patient was on metformin and Lantus 40 units at bedtime and sliding scale with insulin coverage. Decreased IV fluids and we will follow up. LEVEL OF DOCUMENTATION: 25 minutes. cc: Ti Singh MD
[2019-08-26] MEDS: D5 1/2 NS 1,000 ML IV SCH (04:39)
[2019-08-26] MEDS: HUMULIN R SUBQ SCH ×4 (06:22→22:25)
[2019-08-26 06:50] LABS: BASO# 0.01 X1000 (0.0-0.2); BASO% 0.1 % (0.0-0.8); EOS# 0.17 X1000 (0.0-0.7); EOS% 2.1 % (0.0-10.0); HEMATOCRIT 32.1 % (37.0-47.0); HEMOGLOBIN 10.6 g/dL (12.0-16.0); IMM GRAN# 0.05 X1000 (0.0-0.04); IMM GRAN% 0.6 % (0.0-0.5); LYMPH% 42.2 % (20.5-51.1); MCH 31.5 PG (27-31); MCV 95.5 FL (81-99); MONO# 0.69 X1000 (0.11-0.59); MONO% 8.3 % (1.7-9.3); MPV 10.8 FL (7.4-10.4); NEUT# 3.87 X1000 (1.4-6.5); NEUT% 46.7 % (42.2-75.2); PLT 209 X1000 (130-400); RBC 3.36 XMIL (4.2-5.4); RDW 12.5 % (11.5-14.5); WBC 8.29 X1000 (4.8-10.8)
[2019-08-26 07:55] LABS: AGAP 12; BUN 9 mg/dL (8-22); CALCIUM 8.8 mg/dL (8.8-10.2); CHLORIDE 104 mmol/L (98-107); COSMO 279; CREATININE 1.1 mg/dL (0.5-0.9); ESTIMATED GFR > 60; GLUCOSE 212 mg/dL (70-104); MAGNESIUM 1.5 mg/dL (1.5-2.7); PHOSPHORUS 2.3 mg/dL (2.7-4.5); POTASSIUM 3.3 mmol/L (3.5-5.1); SODIUM 137 mmol/L (136-145); TCO2 21 mmol/L (25-35)
[2019-08-26] MEDS: RANEXA PO SCH ×2 (08:46→22:26)
[2019-08-26] MEDS: TOPROL XL PO SCH (08:47)
[2019-08-26] MEDS: LIPITOR PO SCH (08:47)
[2019-08-26] MEDS: ASPIRIN EC PO SCH (08:47)
[2019-08-26] MEDS: IMDUR PO SCH (08:47)
[2019-08-26] MEDS: BRILINTA PO SCH ×2 (08:47→22:26)
[2019-08-26] MEDS: LANTUS INSULIN SUBQ SCH (08:47)
[2019-08-26] MEDS: NEURONTIN PO SCH ×2 (08:47→22:26)
[2019-08-26] MEDS: PROTONIX PO SCH (17:37)
[2019-08-26] MEDS ORDERED: POTASSIUM PHOSPHATE 30 MEQ in NS 250 ML IV ONE (21:30)
--- NOTE | 2019-08-26 22:13 | PROGRESS NOTE ---
DATE: 08/26/2019 SUBJECTIVE: The patient is much better and wants to go home. REVIEW OF SYSTEMS: None reported. OBJECTIVE: Temperature is 98 degrees, pulse 82, blood pressure is getting stable at 150/93.HEENT: Within normal limits. Neck: Supple. Chest: Clear. Heart sounds are regular. Belly is soft, nontender. Good bowel sounds. No neurological deficits. LABORATORY DATA: CBC: White cell count 8.3, hematocrit 32, platelet count 209,000. Sodium 137, potassium 3.3, BUN 9, creatinine 1.1, glucose 212. Phosphorus is low. Magnesium is normal. ASSESSMENT AND PLAN: 1. Diabetic ketoacidosis. Resolving. 2. Delirium. Improving. 3. Hypertension. Stable. 4. Discontinue fluids. 5. Advance the diet. 6. Deep vein thrombosis prophylaxis with Lovenox. Gastrointestinal prophylaxis with IV Protonix. Continue on Lantus 40 units daily and follow up on sliding scale with insulin coverage. 7. Coronary artery disease. Continue on aspirin, Brilinta, Ranexa, isosorbide, and metoprolol. 8. Hyperlipidemia. On Lipitor. 9. Hypophosphatemia and hypokalemia. Replace the electrolytes and discontinue King. Advance the diet and will continue to monitor blood sugar before discharge. LEVEL OF DOCUMENTATION: 25 minutes. cc: Ti Singh MD
[2019-08-26] MEDS: LOVENOX SUBQ SCH (22:27)
[2019-08-27] MEDS: HUMULIN R SUBQ SCH ×4 (06:07→21:34)
[2019-08-27] MEDS: PROTONIX PO SCH (06:39)
[2019-08-27] MEDS: NEURONTIN PO SCH ×2 (08:16→21:34)
[2019-08-27] MEDS: LANTUS INSULIN SUBQ SCH (08:16)
[2019-08-27] MEDS: ASPIRIN EC PO SCH (08:16)
[2019-08-27] MEDS: TOPROL XL PO SCH (08:16)
[2019-08-27] MEDS: LIPITOR PO SCH (08:16)
[2019-08-27] MEDS: IMDUR PO SCH (08:16)
[2019-08-27] MEDS: BRILINTA PO SCH ×2 (08:16→21:32)
[2019-08-27] MEDS: RANEXA PO SCH ×2 (08:16→21:32)
[2019-08-27] MEDS: NIASPAN PO SCH ×2 (08:34→21:32)
[2019-08-27] MEDS: LOVENOX SUBQ SCH (21:33)
--- NOTE | 2019-08-27 21:51 | PROGRESS NOTE ---
DATE: 08/27/2019 SUBJECTIVE: The patient is doing very well off IV fluids, tolerating the diet. Headaches are better. Mental confusion is much improved. I am not sure whether she was taking insulin or not. REVIEW OF SYSTEMS: None reported. OBJECTIVE: Vital signs: Temperature 98 degrees. Vitals are stable. HEENT: Within normal limits. Eating well. Chest: Clear. Cardiovascular: Heart sounds are regular. Abdomen: Belly is soft, nontender. No obvious deficits. INVESTIGATIONS: No labs were obtained. ASSESSMENT AND PLAN: 1. Diabetic ketoacidosis, resolving. 2. Delirium, improved. 3. Peripherally inserted central catheter line on the right side. 4. Coronary artery disease status post bypass. Continue medical management. 5. Type 2 diabetes and insulin dependent. Continue on the Lantus. Used to be taking Tresiba, and we will check the labs in the morning. We will reinstate her home medicines, metformin, based on the creatinine level. If she is stable, will be discharged in the morning. LEVEL OF DOCUMENTATION: 25 minutes. cc: Ti Singh MD
[2019-08-28] MEDS: HUMULIN R SUBQ SCH ×2 (06:26→12:24)
[2019-08-28] MEDS: PROTONIX PO SCH (06:26)
[2019-08-28 08:06] LABS: CALCIUM 8.8 mg/dL (8.8-10.2); CREATININE 1.6 mg/dL (0.5-0.9)
[2019-08-28] MEDS: LANTUS INSULIN SUBQ SCH (08:52)
[2019-08-28] MEDS: RANEXA PO SCH (08:52)
[2019-08-28] MEDS: TOPROL XL PO SCH (08:52)
[2019-08-28] MEDS: ASPIRIN EC PO SCH (08:53)
[2019-08-28] MEDS: NEURONTIN PO SCH (08:53)
[2019-08-28] MEDS: LIPITOR PO SCH (08:53)
[2019-08-28] MEDS: NIASPAN PO SCH (08:53)
[2019-08-28] MEDS: BRILINTA PO SCH (08:53)
[2019-08-28] MEDS: IMDUR PO SCH (08:53)
[2019-08-28 11:25] VITALS: BP 98/69
--- NOTE | 2019-08-31 10:03 | DISCHARGE SUMMARY ---
ADMISSION DATE: 08/22/2019 DISCHARGE DATE: 08/28/2019 DISCHARGING DIAGNOSES: 1. Altered mental status due to metabolic encephalopathy. 2. Diabetic ketoacidosis. 3. Complicated diabetes - peripheral neuropathy, retinopathy, and macroangiopathy. 4. Coronary artery disease status post bypass surgery. 5. Gastroparesis. 6. Hyperlipidemia. 7. Hypertension. 8. Rheumatoid arthritis. 9. Left lacunar stroke. 10. History of noncompliance. 11. Peripherally inserted central catheter (PICC) on the right side. BRIEF HISTORY: Please see the H and P that was done on 08/22/2019. In brief, she is a 54-year- old female who was brought in by her family with altered mental status, delirium, tachycardia, hypertension, tachypneic, and confused. Her blood sugar was 784 with anion gap metabolic acidosis. The patient was very symptomatic and critical in the ER. The patient had a PICC line placed on the right side. She was started on DKA protocol. The patient was in the ER for 24 hours and then downgraded to step-down to PVC. HOSPITAL COURSE: The patient was also very tachycardic and hypertensive. She was started on IV Cardizem drip and subsequently she started taking her home medicines. Apparently, the patient stopped taking insulin. She was on Tresiba 40 units subcutaneously daily. Slowly her home medicines were started by mouth. We had a long discussion about continuing to monitor her blood sugars. The patient is anxious to go home. LABS: At the time of discharge labs were as follows. CBC: White cell count 8.2, hematocrit 32, platelets 209,000, sodium 136, potassium 4.0, chloride 104, BUN 16, creatinine 1.1, and glucose 136. Cardiac enzymes were normal. DISCHARGE INSTRUCTIONS: 1. The patient did receive pneumococcal vaccine 2013 2. Continue to monitor blood sugars. Gabapentin 600 b.i.d. and metformin 1000 p.o. b.i.d. 3. We will closely monitor creatinine. 4. Lipitor 80 daily, Ranexa 1000 p.o. b.i.d., isosorbide 30 daily, Ambien 10 at bedtime, aspirin 81 mg daily, Brilinta 90 p.o. b.i.d., metoprolol 50 daily, niacin 1000 p.o. b.i.d., and Tresiba 40 units daily. 5. Discontinue Reglan. 6. Follow-up in my office in 10 days. cc: Ti Singh MD MTDD
== END 2019-08-28 15:30 | disposition home health service (06) | DRG 637 ==
LOC: ED 11:10 → EDIPHOLD 15:44 → 2N 08-23 02:48 → EDIPHOLD 08-23 03:07 → 2N 08-23 15:31
PROVIDERS: ADMIT Internal Medicine; ATTEND Internal Medicine